=== PATIENT | female | born 1985 | race Two or more races ===

== ENCOUNTER → 2023-05-12 11:26 | Outpatient (BNVA) | payer BC, SELFPAY | PROVIDERS: PCP Internal Medicine; Visit Provider Physician Assistant ==

== ENCOUNTER 2023-05-28 08:12 | Outpatient (AMB) | payer BC, SELFPAY ==
--- OUTSIDE RECORDS SUMMARY | 2023-05-28 08:13 | XMS_ITS | Continuity of Care Document ---
Author Name Unknown Organization [facility] Address Unknown Care Team Providers Care Chef Instructor Name Role Phone Not on Staff, PCP Primary Care Physician Unavail able [place] [facility] [place](s[place] 10/15/21 - 11/14/21 [facility] Rep[facility]ductive Medicine Allergies, Adverse Reactions, Alerts No Known Allergies Medications Labetalol 0 Refills, Maintenance, 07/31/21 15:09:00 EST, Partial fill upon patient request if the prescription is for a schedule II opioid drug. Start Date: 07/31/21 Status: Ordered spironolactone 25 mg oral tablet 25 mg, 1, tablet, By Mouth, Daily, # 30 tablet, Refills 0, Maintenance, 08/16/21 10:24:00 EST, Partial fill upon patient request if the prescription is for a schedule II opioid drug. Start Date: 08/16/21 Status: Ordered Valium 5 mg oral tablet 5 mg, 1, tablet, By Mouth, Once, take 1 tablet 1/2 to 1 hr before Sono may repeat dose if needed., # 2 tablet, Refills 0, Tot. Refills 0, Soft Stop, 10/16/21 14:47:00 EDT, Route to Pharmacy Electronically, [facility] #[id number], Partial fill... Start Date: 10/16/21 Status: Ordered Problem List Condition Effective Dates Status Health Status Inform ant Hypertension(Confirmed) Active Social History Social History Type Response Smoking Status Never (less than 100 in lifetime) entered on: 07/31/21 Sex
--- OUTSIDE RECORDS SUMMARY | 2023-05-28 08:13 | XMS_ITS | Continuity of Care Document ---
Author Name Unknown Organization [facility] ter Address [address] [place] [address]- Care Team Providers Care Regulatory Leader Name Role Phone Not on Staff, PCP Primary Care Physician Unavail able Encounter [facility] [place] Date(s): 08/24/21 - 09/29/[address] [address] Attending Physician: Criss Sharma MD Allergies, Adverse Reactions, Alerts No Known Allergies [...] opioid drug. Start Date: 08/16/21 Status: Ordered Problem List Condition Effective Dates Status Health Status Inform ant Hypertension(Confirmed) Active Social History Social History Type Response Smoking Status Never (less than 100 in lifetime) entered on: 07/31/21 Sex
--- OUTSIDE RECORDS SUMMARY | 2023-05-28 08:14 | XMS_ITS | Continuity of Care Document ---
Author Name Unknown Organization [facility] e Medicine Address Unknown Care Team Providers Care Cow Rider Name Role Phone Not on Staff, PCP Primary Care Physician Unavail able Encounter [facility] [place] Date(s): 08/30/21 - 09/06/21 [facility] Reproductive Medicine Attending Physician: Criss Sharma MD Allergies, Adverse [...]
--- OUTSIDE RECORDS SUMMARY | 2023-05-28 08:14 | XMS_ITS | Continuity of Care Document ---
Author Name Unknown Organization [facility] Address [address] [place] [address]- Care Team Providers Care It Recruiter Name Role Phone Not on Staff, PCP Primary Care Physician Unavail able [place] [facility] [place](s): 10/17/21 - 11/16/21 [facility] [address] [place] [id number] Attending Physician: Sissy Irizarry Admitting Physician: Sissy Irizarry Referring Physician: trSissy Allergies, Adverse Reactions, Alerts No Known Allergies [...] 10/16/21 14:47:00 EDT, Route to Pharmacy Electronically, [facility] #[id number], Partial fill... Start Date: 10/16/21 Status: Ordered Problem List Condition Effective Dates Status Health Status Inform ant Hypertension(Confirmed) Active Social History Social History Type Response Smoking Status Never (less than 100 in lifetime) entered on: 07/31/21 Sex
--- OUTSIDE RECORDS SUMMARY | 2023-05-28 08:14 | XMS_ITS | Continuity of Care Document ---
Author Name Unknown Organization [facility] calh[facility] Assist[facility] Address [address] [place] [address], [address] [place] [address]- Care Team Providers Care Manager Income Tax Name Role Phone Not on Staff, PCP Primary Care Physician Unavail able Encounter [facility] [id number] Date(s): 10/04/21 - 02/01/22 [facility]tega[facility]ist[facility] [address] [facility] [address], [address] [place] [address]- Attending Physician: Not on Staff, Attending MD Referring Physician: Not on Staff, Referring MD Allergies, Adverse Reactions, Alerts No Known Allergies Medications Apri 0.15 mg-0.03 mg oral tablet 1 tablet, By Mouth, Daily, # 28 tablet, 2 Refills, Maintenance, 01/22/22 11:48:00 EDT, Tablet, [facility] #[id number], Partial fill upon patient request if the prescription is for a schedule II opioid drug., 1 tablet By Mouth Daily Start Date: 01/22/22 Status: Ordered Labetalol 0 Refills, Maintenance, 07/31/21 15:09:00 EST, [...] 10/16/21 14:47:00 EDT, Route to Pharmacy Electronically, [facility] #[id number], Partial fill... Start Date: 10/16/21 Status: Ordered Problem List Condition Effective Dates Status Health Status Inform ant Hypertension(Confirmed) Active Social History Social History Type Response Smoking Status Never (less than 100 in lifetime) entered on: 07/31/21 Sex
--- OUTSIDE RECORDS SUMMARY | 2023-05-28 08:14 | XMS_ITS | Continuity of Care Document ---
Author Name Unknown Organization [facility] e Medicine Address Unknown Care Team Providers Care Middle School Counselor Name Role Phone Not on Staff, PCP Primary Care Physician Unavail able [place] [facility] [place] 12/05/21 - 01/04/22 [facility] Reproductive Medicine Allergies, Adverse Reactions, Alerts No Known Allergies Medications Apri 0.15 mg-0.03 mg oral tablet 1 tablet, By Mouth, Daily, # 28 tablet, 0 Refills, Maintenance, 12/20/21 16:33:00 EDT, Tablet, [facility] #[id number], Partial fill upon patient request if the prescription is for a schedule II opioid drug., 1 tablet By Mouth Daily Start Date: 12/20/21 Status: Ordered Labetalol 0 Refills, Maintenance, 07/31/21 [...] 10/16/21 14:47:00 EDT, Route to Pharmacy Electronically, [facility] #[id number], Partial fill... Start Date: 10/16/21 Status: Ordered Problem List Condition Effective Dates Status Health Status Inform ant Hypertension(Confirmed) Active Social History Social History Type Response Smoking Status Never (less than 100 in lifetime) entered on: 07/31/21 Sex
--- OUTSIDE RECORDS SUMMARY | 2023-05-28 08:14 | XMS_ITS | Continuity of Care Document ---
Author Name Unknown Organization [facility] e Medicine Address Unknown Care Team Providers Care Air Control/Anti Air Warfare Officer Name Role Phone Not on Staff, PCP Primary Care Physician Unavail able En[place] [facility] [place] Date(s): 10/16/21 - 12/19/21 [facility] Reproductive Medicine Attending Physician: Criselda Mohr MD Referring Physician: Jeanne GOLDSMITH, Milagros Barrientos Allergies, Adverse Reactions, Alerts No Known Allergies [...] 10/16/21 14:47:00 EDT, Route to Pharmacy Electronically, [facility] #[id number], Partial fill... Start Date: 10/16/21 Status: Ordered Problem List Condition Effective Dates Status Health Status Inform ant Hypertension(Confirmed) Active Social History Social History Type Response Smoking Status Never (less than 100 in lifetime) entered on: 07/31/21 Sex
--- OUTSIDE RECORDS SUMMARY | 2023-05-28 08:14 | XMS_ITS | Continuity of Care Document ---
Author Name Unknown Organization [facility] e Medicine Address Unknown Care Team Providers Care Transportation Modeler Name Role Phone Not on Staff, PCP Primary Care Physician Unavail able Encounter [facility] [place] Date(s): 08/30/21 - 09/29/21 [facility] Reproductive Medicine Allergies, Adverse Reactions, Alerts [...]
--- OUTSIDE RECORDS SUMMARY | 2023-05-28 08:14 | XMS_ITS | Continuity of Care Document ---
Author Name Unknown Organization [facility]ierra calhounEnWavemay[facility] Address [address], [address] [place] [address]- Care Team Providers Care Service Transformer Repair Supervisor Name Role Phone Not on Staff, PCP Primary Care Physician Unavail able [place] [facility] [place] 02/06/22 - 03/08/22 [facility]fartun [facility] [address], [address] [place], [place] [address] Attending Physician: Sissy Irizarry Admitting Physician: Sissy Irizarry Referring Physician: AdmtrSissy Allergies, Adverse Reactions, Alerts No Known Allergies Medications Labetalol 0 Refills, Maintenance, 07/31/21 15:09:00 EST, Partial fill upon patient request if the prescription is for a schedule II opioid drug. Start Date: 07/31/21 Status: Ordered naproxen 250 mg oral tablet 500 mg, 2, tablet, By Mouth, 2 times a day, # 30 tablet, Refills 0, Tot. Refills 0, Maintenance, 02/06/22 13:43:00 EDT, Route to Pharmacy Electronically, [facility] #[id number], Partial fill upon patient request if the prescription is for a sched... Start Date: 02/06/22 Status: Ordered Provera 10 mg oral tablet 10 mg, 1, tablet, By Mouth, Daily, # 30 tablet, Refills 0, Tot. Refills 0, Maintenance, 02/06/22 13:43:00 EDT, Route to Pharmacy Electronically, [facility] #[id number], Partial fill upon patientrequest if the prescription is for a schedule II op... Start Date: 02/06/22 Status: Ordered Problem List Condition Effective Dates Status Health Status Inform ant Hypertension(Confirmed) Active Social History Social History Type Response Smoking Status Never (less than 100 in lifetime) entered on: 07/31/21 Sex Care Team Personnel Name: Not on Staff, PCP
--- OUTSIDE RECORDS SUMMARY | 2023-05-28 08:14 | XMS_ITS | Continuity of Care Document ---
Author Name Unknown Organization [facility] e Medicine Address Unknown Care Team Providers Care Television Anchor Name Role Phone Not on Staff, PCP Primary Care Physician Unavail able [place] [facility] [place]12[place]21 - 10/26/21 [facility] Reproductive Medicine Attending Physician: Milagros Angel MD Allergies, Adverse Reactions, Alerts No Known [...] 10/16/21 14:47:00 EDT, Route to Pharmacy Electronically, [facility] #[id number], Partial fill... Start Date: 10/16/21 Status: Ordered Problem List Condition Effective Dates Status Health Status Inform ant Hypertension(Confirmed) Active Social History Social History Type Response Smoking Status Never (less than 100 in lifetime) entered on: 07/31/21 Sex
--- OUTSIDE RECORDS SUMMARY | 2023-05-28 08:14 | XMS_ITS | Continuity of Care Document ---
Author Name Unknown Organization [facility] [employer] [facility] Address [address] [place] [address], [address] [place] [address]- Care Team Providers Care Diagrammer Name Role Phone Not on Staff, PCP Primary Care Physician Unavail able [place] [facility] [place] - 02/01/22 [facility] [employer] [employer] [facility] [address] [facility], [address] [place] [address]- Attending Physician: Sissy Irizarry Admitting Physician: Sissy Irizarry Referring Physician: AdmtrSissy Allergies, Adverse Reactions, Alerts No Known Allergies Medications Apri 0.15 mg-0.03 mg oral tablet 1 tablet, By Mouth, Daily, # 28 tablet, 2 Refills, Maintenance, 01/22/22 11:48:00 EDT, Tablet, [facility] #[id number], Partial fill upon patient request if the [...] Refills 0, Tot. Refills 0, Soft Stop, 04/12/22 14:47:00 EDT, Route to Pharmacy Electronically, [facility] #[id number], Partial fill... Start Date: 10/16/21 Status: Ordered Problem List Condition Effective Dates Status Health Status Inform ant Hypertension(Confirmed) Active Social History Social History Type Response Smoking Status Never (less than 100 in lifetime) entered on: 07/31/21 Sex
--- OUTSIDE RECORDS SUMMARY | 2023-05-28 08:14 | XMS_ITS | Continuity of Care Document ---
Author Name Unknown Organization [facility]ierra calhounFormaFinam[employer]ur [facility] Address [address] [place] [address], [address] [place] [address]- Care Team Providers Care Filler Block Inserter Remover Name Role Phone Not on Staff, PCP Primary Care Physician Unavail able En[place] [facility] [place] Date(s): 10/28/22 - 11/04/22 [facility] OrtegaFormaFin[facility] [address] [facility], 4th [place] [address]- Attending Physician: Mat Rios MD Referring Physician: Not on Staff, Referring MD Allergies, Adverse Reactions, Alerts No Known Allergies Medications Labetalol 0 Refills, Maintenance, 07/31/21 15:09:00 EST, Partial fill upon patient request if the prescription is for a schedule II opioid drug. Start Date: 07/31/21 Status: Ordered metFORMIN 500 mg oral tablet 1 tablet = 500 mg, By Mouth, 2 times a day, # 60 tablet, 1 Refills, Maintenance, 10/28/22 10:20:00 EDT, Tablet, [facility] #[id number], Partial fill upon patient request if the prescription is for a schedule II opioid drug., 174, cm, 10/28/22 10:... Start Date: 10/28/22 Status: Ordered naproxen 250 mg oral tablet 500 mg, 2, tablet, By Mouth, 2 times a day, # 30 tablet, Refills 0, Tot. Refills 0, Maintenance, 02/06/22 13:43:00 EDT, Route to Pharmacy Electronically, [facility] #[id number], Partial fill upon patient request if the prescription is for a sched... Start Date: 02/06/22 Status: Ordered Problem List Condition Confirmation Course Effective Dates Status Health St [facility] Informant Hypertension Confirmed Active Severe obesity (BMI 35.0-39.9) with comorbidity Confirmed Active Vital Signs Most recent to oldest [Reference Range]: 1 2 Height 174 cm (10/28/22 10:22 AM) 174 cm (10/28/22 10:05 AM) Weight 109.9 kg (10/28/22 10:05 AM) Pulse Rate [55-90 bpm] 71 bpm (10/28/22 10:05 AM) Body Mass Index [18.5-24.99 kg/m2] 36.3 kg/m2 *>HHI* (10/28/22 10:05 AM) Blood Pressure [90-138/55-84 mm Hg] 140/ 73mm Hg *H* (10/28/22 10:22 AM) 143/74mm Hg *H* (10/28/22 10:05 AM) Blood pressure sites Arm, right (10/28/22 10:22 AM) Arm, right (10/28/22 10:05 AM) Dry Weight 109.9 kg (10/28/22 10:05 AM) Weight Obtained Via Standing scale (10/28/22 10:05 AM) Dry Weight Obtained Via Standing scale (10/28/22 10:05 AM) Social History Social History Type Response Smoking Status Never (less than 100 in lifetime) entered on: 07/31/21 Sex Patient Care team information Care Team Personnel Name: Not on Staff, PCP Position: S Physician (General Medicine) Member Role: PCP Care Team Related Persons Name: ANNIE SERVIN Address: home [address] [place] [address] Name: JAMES RENEE Address: home [address] [place] [address]
--- OUTSIDE RECORDS SUMMARY | 2023-05-28 08:14 | XMS_ITS | Continuity of Care Document ---
Author Name Unknown Organization [facility] e Medicine Address Unknown Care Team Providers Care Switchgear Repairer Name Role Phone Not on Staff, PCP Primary Care Physician Unavail able [place] [facility] [place] 11[place]05/21 - 12/05/21 [facility] Reproductive Medicine Allergies, Adverse Reactions, Alerts No [...] 10/16/21 14:47:00 EDT, Route to Pharmacy Electronically, [facility] #[id number], Partial fill... Start Date: 10/16/21 Status: Ordered Problem List Condition Effective Dates Status Health Status Inform ant Hypertension(Confirmed) Active Social History Social History Type Response Smoking Status Never (less than 100 in lifetime) entered on: 07/31/21 Sex
--- OUTSIDE RECORDS SUMMARY | 2023-05-28 08:14 | XMS_ITS | Continuity of Care Document ---
Author Name Unknown Organization [facility] e Medicine Address Unknown Care Team Providers Care Peach Grower Name Role Phone Not on Staff, PCP Primary Care Physician Unavail able [place] [facility] [place]17[place] - 10/17/21 [facility] Reproductive Medicine Allergies, Adverse Reactions, Alerts No [...] 10/16/21 14:47:00 EDT, Route to Pharmacy Electronically, [facility] #[id number], Partial fill... Start Date: 10/16/21 Status: Ordered Problem List Condition Effective Dates Status Health Status Inform ant Hypertension(Confirmed) Active Social History Social History Type Response Smoking Status Never (less than 100 in lifetime) entered on: 07/31/21 Sex
--- OUTSIDE RECORDS SUMMARY | 2023-05-28 08:14 | XMS_ITS | Continuity of Care Document ---
Author Name Unknown Organization [facility] Tierra calhounIntellitacticss [facility] Address [address], [address] [place] [address]- Care Team Providers Care Manager Document Name Role Phone Not on Staff, PCP Primary Care Physician Unavail able [place] [facility] [place] 01/28/23 - 02/27/23 [facility] OrtegaIntellitacticss [facility] [address], [address]th [place] [address]- Attending Physician: Sissy Irizarry Admitting Physician: Sissy Irizarry Referring Physician: Sissy Irizarry Allergies, Adverse Reactions, Alerts No Known Allergies Medications Centrum Adult MultiGummies Daily, 0 Refills, Maintenance, 01/14/23 11:13:00 EDT, Partial fill upon patient request if the prescription is for a schedule II opioid drug. Start Date: 01/14/23 Status: Ordered Labetalol 0 Refills, Maintenance, 07/31/21 15:09:00 EST, Partial fill upon patient request if the prescription is for a schedule II opioid drug. Start Date: 07/31/21 Status: Ordered metFORMIN 1000 mg oral tablet 1 tablet = 1,000 mg, By Mouth, 2 times a day, # 180 tablet, 0 Refills, Maintenance, 01/14/23 13:34:00 EDT, Tablet, [facility] #[id number], Partial fill upon patient request if the prescription is for a schedule II opioid drug., 174, cm, 01/14/23... Start Date: 01/14/23 Status: Ordered Problem List Condition Confirmation Course Effective Dates Status Health St [facility] Informant Abnormal uterine bleeding Confirmed Active Family history of uterine cancer Confirmed Active Hypertension Confirmed Active Severe obesity (BMI 35.0-39.9) with comorbidity Confirmed Active Social History Social History Type Response Smoking Status Never (less than 100 in lifetime) entered on: 07/31/21 Sex Patient Care team information Care Team Personnel Name: Not on Staff, PCP Position: S Physician (General Medicine) Member Role: PCP Care Team Related Persons Name: MALATHI MARQUITADAREN Address: home [address] [place] [address] [place] Name: JAMES RENEE Address: home [address] [place] [address]
--- OUTSIDE RECORDS SUMMARY | 2023-05-28 08:14 | XMS_ITS | Continuity of Care Document ---
Author Name Unknown Organization [facility] Tierra Diane nExa[employer] System[employer] [facility] Address [address], [address] [place] [address]- Care Team Providers Care Transformation Specialist Name Role Phone Not on Staff, PCP Primary Care Physician Unavail able Encounter [facility] Date(s): 08/10/21 - 09/09/21 [facility] Tierrafartun OrtegaExaGrid Systemss [facility] [address], [address]th [place] [address]- Allergies, Adverse Reactions, Alerts No Known Allergies [...]
--- OUTSIDE RECORDS SUMMARY | 2023-05-28 08:14 | XMS_ITS | Continuity of Care Document ---
Author Name Unknown Organization [facility] e Medicine Address Unknown Care Team Providers Care Battery Charger Name Role Phone Not on Staff, PCP Primary Care Physician Unavail able Encounter [facility] [place] Date(s): 08/30/21 - 09/29/21 [facility] Reproductive Medicine Attending Physician: Sissy Irizarry Admitting Physician: Sissy [...]
--- OUTSIDE RECORDS SUMMARY | 2023-05-28 08:14 | XMS_ITS | Continuity of Care Document ---
Author Name Unknown Organization [facility] Tierra grahams [facility] Address [address], [address] [place] [address]- Care Team Providers Care Wrapping Checker Name Role Phone Not on Staff, PCP Primary Care Physician Unavail able [place] [facility] [place] - 02/27/23 [facility] Tierra Fosss [facility] [address], [address] [place] [address]- Attending Physician: Not on Staff, Attending MD Referring Physician: Olga Lidia Rodríguez Allergies, Adverse Reactions, Alerts No Known Allergies [...] 0 Refills, Maintenance, 01/14/23 13:34:00 EDT, Tablet, [facility] #[id number], Partial fill upon patient request if the [...] Related Persons Name: ANNIE SERVIN Address: home [address] [place] [address] [place] Name: JAMES RENEE Address: home [address] [place] [address]
--- OUTSIDE RECORDS SUMMARY | 2023-05-28 08:14 | XMS_ITS | Continuity of Care Document ---
Author Name Unknown Organization [facility]ierra calhounPushfors [facility] Address [address] [place] [address], [address] [place] [address]- Care Team Providers Care Vehicle Washer Name Role Phone Not on Staff, PCP Primary Care Physician Unavail able [place] [facility] [place]19[place] [facility] [address] [facility] [address] [facility], [address] [place] [address]- Allergies, Adverse Reactions, Alerts No Known Allergies Medications Apri 0.15 mg-0.03 mg oral tablet 1 tablet, By Mouth, Daily, # 28 tablet, 0 Refills, Maintenance, 12/20/21 16:33:00 EDT, Tablet, [facility] #[id number], Partial fill upon patient request if the [...] 10/16/21 14:47:00 EDT, Route to Pharmacy Electronically, [facility] #[id number], Partial fill... Start Date: 10/16/21 Status: Ordered Problem List Condition Effective Dates Status Health Status Inform ant Hypertension(Confirmed) Active Social History Social History Type Response Smoking Status Never (less than 100 in lifetime) entered on: 07/31/21 Sex
--- OUTSIDE RECORDS SUMMARY | 2023-05-28 08:14 | XMS_ITS | Continuity of Care Document ---
Author Name Unknown Organization [facility] Address [address], [address] [place] [address]- Care Team Providers Care Intern Architect Name Role Phone Not on Staff, PCP Primary Care Physician Unavail able [facility] [place] Date(s): 11/20/22 - [facility]20/[facility] [address] [facility], [address] [place] [address]- Allergies, Adverse Reactions, Alerts No Known Allergies Medications Labetalol 0 Refills, Maintenance, 07/31/21 15:09:00 EST, Partial fill upon patient request if the prescription is for a schedule II opioid drug. Start Date: 07/31/21 Status: Ordered metFORMIN 500 mg oral tablet 1 tablet = 500 mg, By Mouth, 2 times a day, # 60 tablet, 1 Refills, Maintenance, 10/28/22 10:20:00 EDT, Tablet, [facility] #[id number], Partial fill upon patient request if the prescription is for a schedule II opioid drug., 174, cm, 10/28/22 10:... Start Date: 10/28/22 Status: Ordered naproxen 250 mg oral tablet 500 mg, 2, tablet, By Mouth, 2 times a day, # 30 tablet, Refills 0, Tot. Refills 0, Maintenance, 02/06/22 13:43:00 EDT, Route to Pharmacy Electronically, [facility] #[id number], Partial fill upon patient request if the [...] Related Persons Name: ANNIE SERVIN Address: home [address] [place] [address] [place] Name: JAMES RENEE Address: home [address] [place] [address]
--- OUTSIDE RECORDS SUMMARY | 2023-05-28 08:15 | XMS_ITS | Continuity of Care Document ---
Author Name Unknown Organization [facility] Address [address] [place] [address]- Care Team Providers Care Surveillance Systems Analyst Name Role Phone Not on Staff, PCP Primary Care Physician Unavail able [place] [facility] [place] Date(s): 01/22/22 - 02/21/22 [facility] [address] [place], [place] [address] Allergies, Adverse Reactions, Alerts No Known Allergies [...] 02/06/22 13:43:00 EDT, Route to Pharmacy Electronically, [id number], Partial fill upon patient request if the prescription is for a sched... Start Date: 02/06/22 Status: Ordered Provera 10 mg oral tablet 10 mg, 1, tablet, By Mouth, Daily, # 30 tablet, Refills 0, Tot. Refills 0, Maintenance, 02/06/22 13:43:00 EDT, Route to Pharmacy Electronically, [facility] #[id number], Partial fill upon patientrequest if the prescription is for a schedule II op... Start Date: 02/06/22 Status: Ordered Problem List Condition Effective Dates Status Health Status Inform ant Hypertension(Confirmed) Active Social History Social History Type Response Smoking Status Never (less than 100 in lifetime) entered on: 07/31/21 Sex
--- OUTSIDE RECORDS SUMMARY | 2023-05-28 08:15 | XMS_ITS | Continuity of Care Document ---
Author Name Unknown Organization [facility] Address Unknown Care Team Providers Care Price Checker Name Role Phone Not on Staff, PCP Primary Care Physician Unavail able [place] [facility] [place](s): 08/16/21 - 08/23/21 [facility] Attending Physician: Criss Sharma MD Referring Physician: Not on Staff, Referring MD Allergies, Adverse Reactions, Alerts No Known Allergies Medications doxycycline hyclate 100 mg oral capsule 1 capsule = 100 mg, By Mouth, 2 times a day, for 5 days, Start 2 days before HSG and continue for 5days total. You may take with food (breakfast and dinner) to minimize abdominal discomfort., # 10 capsule, 0 Refills, Acute 08/26/21 14:42:00 EST, 02... Start Date: 08/21/21 Stop Date: 08/26/21 Status: Ordered Labetalol 0 Refills, Maintenance, 07/31/21 [...]
--- OUTSIDE RECORDS SUMMARY | 2023-05-28 08:15 | XMS_ITS | Continuity of Care Document ---
Author Name Unknown Organization [facility] Address Unknown Care Team Providers Care Senior Care Manager Name Role Phone Not on Staff, PCP Primary Care Physician Unavail able [place] [facility] [place](s): 08/20/21 - 09/19/21 [facility] Allergies, Adverse Reactions, Alerts [...]
--- OUTSIDE RECORDS SUMMARY | 2023-05-28 08:15 | XMS_ITS | Continuity of Care Document ---
Author Name Unknown Organization [facility] Address [address] [place] [address], [address] [place] [address]- Care Team Providers Care Pharmacist Manager Name Role Phone Not on Staff, PCP Primary Care Physician Unavail able Encounter [facility] [place] Date(s): 07/31/21 - 08/07/21 [facility] [employer] [address], [address] [place] [address]- Attending Physician: Luis Fernando GOLDSMITH [OB], Ita Morales Referring Physician: Olga Lidia Rodríguez Allergies, Adverse Reactions, Alerts No Known Allergies Medications Labetalol 0 Refills, Maintenance, 07/31/21 15:09:00 EST, Partial fill upon patient request if the prescription is for a schedule II opioid drug. Start Date: 07/31/21 Status: Ordered Problem List Condition Effective Dates Status Health Status Inform ant Hypertension(Confirmed) Active Vital Signs Most recent to oldest [Reference Range]: 1 Weight 110 kg (07/31/21 3:08 PM) Blood Pressure [90-138/55-84 mm Hg] 128/ 72mm Hg (07/31/21 3:08 PM) Blood pressure sites Arm, right (07/31/21 3:08 PM) Weight Obtained Via Standing scale (07/31/21 3:08 PM) Social History Social History Type Response Smoking Status Never (less than 100 in lifetime) entered on: 07/31/21 Sex
--- OUTSIDE RECORDS SUMMARY | 2023-05-28 08:15 | XMS_ITS | Continuity of Care Document ---
Author Name Unknown Organization [facility] Address [address], [address] [place] [address]- Care Team Providers Care Director Safety Council Name Role Phone Not on Staff, PCP Primary Care Physician Unavail able Encounter [facility] Date(s): 09/26/22 - 10/26/22 [facility] [address], [address] [place], [place] [address] Allergies, Adverse Reactions, Alerts No Known [...] 02/06/22 13:43:00 EDT, Route to Pharmacy Electronically, [id number], Partial fill upon patient request if the prescription is for a sched... Start Date: 02/06/22 Status: Ordered Provera 10 mg oral tablet 10 mg, 1, tablet, By Mouth, Daily, # 10 tablet, Refills 0, Tot. Refills 0, Maintenance, 09/27/22 9:40:00 EDT, Route to Pharmacy Electronically, [facility] #[id number], Partial fill upon patient request if the prescription is for a schedule II opi... Start Date: 09/27/22 Stop Date: 10/07/22 Status: Ordered Problem List Condition Confirmation Course Effective Dates Status Health St [facility] Informant Hypertension Confirmed Active Obese class I Confirmed Active Social History Social History Type Response Smoking Status Never (less than 100 in lifetime) entered on: 07/31/21 Sex Patient Care team information Care Team Personnel Name: Not on Staff, PCP Position: [facility] Physician (General Medicine) Member Role: PCP Care Team Related Persons Name: NNEKAVIVANNIE GALARZA Address: home [address] [place] [address] [place] Name: JAMES RENEE Address: home [address] [place] [address]
--- OUTSIDE RECORDS SUMMARY | 2023-05-28 08:15 | XMS_ITS | Continuity of Care Document ---
Author Name Unknown Organization [facility] Address [address] [place] [address]- Care Team Providers Care Chainstitch Felled Seam Operator Name Role Phone Not on Staff, PCP Primary Care Physician Unavail able [id number] Date[facility]s): 02/06/22 - 02/13/22 [facility] [address], [address] [place] [address]- Attending Physician: Mat Rios MD Referring Physician: Olga Lidia Rodríguez Allergies, [...] 02/06/22 13:43:00 EDT, Route to Pharmacy Electronically, [facility][id number], Partial fill upon patient request if the prescription is for a sched... Start Date: 02/06/22 Status: Ordered Provera 10 mg oral tablet 10 mg, 1, tablet, By Mouth, Daily, # 30 tablet, Refills 0, Tot. Refills 0, Maintenance, 02/06/22 13:43:00 EDT, Route to Pharmacy Electronically, [facility] #[id number], Partial fill upon patientrequest if the prescription is for a schedule II op... Start Date: 02/06/22 Status: Ordered Problem List Condition Effective Dates Status Health Status Inform ant Hypertension(Confirmed) Active Vital Signs Most recent to oldest [Reference Range]: 1 Weight 112.2 kg (02/06/22 1:28 PM) Pulse Rate [55-90 bpm] 81 bpm (02/06/22 1:28 PM) Blood Pressure [90-138/55-84 mm Hg] 124/ 92mm Hg (02/06/22 1:28 PM) Blood pressure sites Arm, left (02/06/22 1:28 PM) Dry Weight 112.2 kg (02/06/22 1:28 PM) Weight Obtained Via Standing scale (02/06/22 1:28 PM) Social History Social History Type Response Smoking Status Never (less than 100 in lifetime) entered on: 07/31/21 Sex
--- NOTE | 2023-05-28 10:15 | A.OFFVIS_ITS ---
Intake VS Expanded 05/28/23 10:32 Height 5 ft 6 in Weight 39 lb 9 oz BMI 6.4 Body Fat % 47.6 Body Fat Mass 117.8 Fat Free Mass 129.6 Visceral Fat Rating 12 Body Water % 37.5 Body Water Mass 92.6 Basal Metabolic Rate/Score 1,852 Intake Visit Reasons: [employer] SWL BMI 39.9 Allergies No Known Allergies Allergy (Verified 05/28/23 10:16) Medication List - Last Reconciled 05/28/23 by Samson Sullivan MD albuterol sulfate 90 mcg/actuation 2 puffs inhalation Q6H PRN buspirone 5 mg PO BID ferrous sulfate (FeroSul) 325 mg PO DAILY labetalol 100 mg PO BID multivitamin 1 tab PO DAILY HPI [employer]ION[employer] SWL BMI 39.9 HPI Details Start time: 10.08am, End time: 10.58am ?I spent 45 minutes speaking with the patient on the phone plus an additional 5 minutes reviewing and updating records for a total of 50 minutes HPI Comments History of Present Illness Details Previous weight loss efforts: Weight Watchers, intermittent fasting Wakes up: 6am, Sleeps: 10pm Breakfast: 7am (eggs, cereal, sandwich) Lunch: 12.30pm-1pm (left over: chicken, potatoes, soup, rice) Dinner: 6pm (chicken, potatoes, flatbread Snacks: 4pm (crackers and peanut butter, dried fruits) Exercise: none Fluids: Coffee: 1 cup/day (creamer), tea: none, soda: regular loki renaldo, juice: none, ETOH: wine 1/wk PFSH Medical History (Updated 05/28/23 @ 10:19 by Samson Sullivan MD) Asthma DJD (degenerative joint disease) Surgical History (Updated 05/28/23 @ 08:47 by Joan Aguilar CMA) No history of previous surgery Family History (Updated 05/28/23 @ 08:49 by Joan Aguilar CMA) Mother Diabetes Hypertension Arthritis Father No problems noted. (Updated 05/28/23 @ 08:48 by Joan Aguilar CMA) Alcohol intake: current Alcohol intake frequency: holidays/special occasions only Alcohol type: wine Patient Tobacco Use Status: Never used Tobacco Assessment & Plan Assessment & Plan (1) Obesity: Code(s): E66.9 - Obesity, unspecified Plan: 1.? Plan for lap sleeve gastrectomy. If diaphragmatic or ventral hernias are present at time of surgery, these will be repaired laparoscopically as well. Risks and complications were discussed in detail including possible conversion to an open procedure, anastomotic leak, bleeding requiring transfusion, small bowel obstruction, , DVT and pulmonary embolism, cardiac, or pulmonary complications, as care home complications such as anastomotic ulcer, insufficient weight loss and vitamin deficiencies. I emphasized the importance of close follow-up, adherence to instructions and good communication. 2. Nutritional counseling. Start with 2 CELEBRATE REBUILD protein (buy at [facility] [employer] [facility]) shakes (ONE scoop EACH in 8oz low fat unsweetened almond milk each) at 7am-9am and 10am-12pm, 2 protein bars (CELEBRATE protein bars, buy at [facility] [employer] [facility]) at 1pm-3pm and 4pm-6pm, dinner at 7pm (10 forks of protein and 10 forks of salad/vegetables). If hungry after dinner you can have another HALF protein bar at 9pm-10pm. So you do 2 protein shakes, 2 or 2.5 protein bars and one meal per day. Meal to include lean meat (beef, fish, pork, turkey, chicken), or tunisian yogurt, or egg whites, or beans with a salad with olive oil and fruits (berries, pears, apples, kiwi). Avoid salt, breads, potatoes, rice, pasta, desserts. 3. Each shake would be drunk slowly, like coffee in a period of 2 hours. You may add your coffee into your shakes if flavors match. 4. Cut each bar in 4 pieces and eat each piece in 30min ?to make each bar last 2 hours. 5. I emphasized the importance of measuring accurately the food portion and measure it when serving the food in plate 6. The meal portions include 10 full-size forks of meat and 10 full-size forks of salad. You always eat the meat portion but you can replace up to 5 forks for salad/vegetables with rice, potatoes or pasta, or a fruit ?if you like. The less you do it the better weight loss will be. 7. One full-size fork is what it can be scooped on the fork without falling aside and not what can be bit with the fork. Use regular forks like those you find in a typical restaurant. 8.? Please send me weight measurements as soon as possible and then once a week. Always include your diet and exercise plan. 9. Start walking outside daily, tracking calories with a goal of 300 calories per day, daily. Goal is to burn 2000 calories per week on exercise, which means either 300 calories daily, or 400 calories 5 days per week, or 500 calories 4 days per week, or 650 calories 3 days per week. 10. I strongly recommend that you purchased a stationary bike, elliptical or treadmill at home that can track calories. Let me know if you do so I can give you an exercise plan. 11.?It is important of avoiding and for at least 18 months postoperatively and has been discussed at the infosession. 12. Goal is to lose at least 1.5-2lbs per week 13. Goal to lose 10% of your weight before surgery, which is about 25lbs. Ultimate weight goal: 222lbs before surgery 14. Please follow the diet plan exactly without any change. If you don't like something about the plan or you feel hungry you need to communicate with me so I can help you revise the plan. You should not change the plan yourself. (2) BMI 39.0-39.9,adult: Code(s): Z68.39 - Body mass index [BMI] 39.0-39.9, adult (3) Hypertension: Code(s): I10 - Essential (primary) hypertension (4) DJD (degenerative joint disease): Code(s): M19.90 - Unspecified osteoarthritis, unspecified site (5) Anxiety: Code(s): F41.9 - Anxiety disorder, unspecified (6) Asthma: Code(s): J45.909 - Unspecified asthma, uncomplicated Orders: Orders Lipid Panel Today E66.9 - Obesity, unspecified, F41.9 - Anxiety disorder, unspe cified, I10 - Essential (primary) hypertension, J45.909 - Unspecified asthma, uncomplicated, M19.90 - Unspecified osteoarthritis, unspecified site, Z68.39 - Body mass index [BMI] 39.0-39.9, adult IRON PROFILE Today E66.9 - Obesity, unspecified, F41.9 - Anxiety disorder, unspecified, I10 - Essential (primary) hypertension, J45.909 - Unspecified asthma, uncomplicated, M19.90 - Unspecified osteoarthritis, unspecified site, Z68.39 - Body mass index [BMI] 39.0-39.9, adult Complete Blood Count Auto Diff Today E66.9 - Obesity, unspecified, F41.9 - Anxiety disorder, unspecified, I10 - Essential (primary) hypertension, J45.909 - Unspecified asthma, uncomplicated, M19.90 - Unspecified osteoarthritis, unspecified site, Z68.39 - Body mass index [BMI] 39.0-39.9, adult Comprehensive Met. Panel Today E66.9 - Obesity, unspecified, F41.9 - Anxiety disorder, unspecified, I10 - Essential (primary) hypertension, J45.909 - Uns pecified asthma, uncomplicated, M19.90 - Unspecified osteoarthritis, unspecified site, Z68.39 - Body mass index [BMI] 39.0-39.9, adult Vitamin B1 Today E66.9 - Obesity, unspecified, F41.9 - Anxiety disorder, unspecified, I10 - Essential (primary) hypertension, J45.909 - Unspecified asthma, uncomplicated, M19.90 - Unspecified osteoarthritis, unspecified site, Z68.39 - Body mass index [BMI] 39.0-39.9, adult Vitamin A Today E66.9 - Obesity, unspecified, F41.9 - Anxiety disorder, unspecified, I10 - Essential (primary) hypertension, J45.909 - Unspecified asthma, uncomplicated, M19.90 - Unspecified osteoarthritis, unspecified site, Z68.39 - Body mass index [BMI] 39.0-39.9, adult C Reactive Protein Today E66.9 - Obesity, unspecified, F41.9 - Anxiety disorder, unspecified, I10 - Essential (primary) hypertension, J45.909 - Unspecified asthma, uncomplicated, M19.90 - Unspecified osteoarthritis, unspecified site, Z68.39 - Body mass index [BMI] 39.0-39.9, adult Ferritin Today E66.9 - Obesity, unspecified, F41.9 - Anxiety disorder, unspecified, I10 - Essential (primary) hypertension, J45.909 - Unspecified asthma, uncomplicated, M19.90 - Unspecified osteoarthritis, unspecified site, Z68.39 - Body mass index [BMI] 39.0-39.9, adult H Pylori Breath Test Today E66.9 - Obesity, unspecified, F41.9 - Anxiety disorder, unspecified, I10 - Essential (primary) hypertension, J45.909 - Unspecified asthma, uncomplicated, M19.90 - Unspecified osteoarthritis, unspecified site, Z68.39 - Body mass index [BMI] 39.0-39.9, adult Vitamin D 25-OH Total Today E66.9 - Obesity, unspecified, F41.9 - Anxiety disorder, unspecified, I10 - Essential (primary) hypertension, J45.909 - Unspecified asthma, uncomplicated, M19.90 - Unspecified osteoarthritis, unspecified site, Z68.39 - Body mass index [BMI] 39.0-39.9, adult US abdomen comp w elastography Today E66.9 - Obesity, unspecified, F41.9 - Anxiety disorder, unspecified, I10 - Essential (primary) hypertension, J45.909 - Unspecified asthma, uncomplicated, M19.90 - Unspecified osteoarthritis, unspecified site, Z68.39 - Body mass index [BMI] 39.0-39.9, adult ECG 12 lead EKG Today E66.9 - Obesity, unspecified, F41.9 - Anxiety disorder, unspecified, I10 - Essential (primary) hypertension, J45.909 - Unspecified asthma, uncomplicated, M19.90 - Unspecified osteoarthritis, unspecified site, Z68.39 - Body mass index [BMI] 39.0-39.9, adult Insulin Today E66.9 - Obesity, unspecified, F41.9 - Anxiety disorder, unspecified, I10 - Essential (primary) hypertension, J45.909 - Unspecified asthma, uncomplicated, M19.90 - Unspecified osteoarthritis, unspecified site, Z68.39 - Body mass index [BMI] 39.0-39.9, adult Vitamin B12 and Folate Today E66.9 - Obesity, unspecified, F41.9 - Anxiety disorder, unspecified, I10 - Essential (primary) hypertension, J45.909 - Unspecified asthma, uncomplicated, M19.90 - Unspecified osteoarthritis, unspecified site, Z68.39 - Body mass index [BMI] 39.0-39.9, adult Zinc Today E66.9 - Obesity, unspecified, F41.9 - Anxiety disorder, unspecified, I10 - Essential (primary) hypertension, J45.909 - Unspecified asthma, uncomplicated, M19.90 - Unspecified osteoarthritis, unspecified site, Z68.39 - Body mass index [BMI] 39.0-39.9, adult PTHI Today E66.9 - Obesity, unspecified, F41.9 - Anxiety disorder, unspecified, I10 - Essential (primary) hypertension, J45.909 - Unspecified asthma, uncomplicated, M19.90 - Unspecified osteoarthritis, unspecified site, Z68.39 - Body mass index [BMI] 39.0-39.9, adult TSH reflex Free T4 Today E66.9 - Obesity, unspecified, F41.9 - Anxiety disorder, unspecified, I10 - Essential (primary) hypertension, J45.909 - Unspecified asthma, uncomplicated, M19.90 - Unspecified osteoarthritis, unspecified site, Z68.39 - Body mass index [BMI] 39.0-39.9, adult Hemoglobin A1c Today E66.9 - Obesity, unspecified, F41.9 - Anxiety disorder, unspecified, I10 - Essential (primary) hypertension, J45.909 - Unspecified asthma, uncomplicated, M19.90 - Unspecified osteoarthritis, unspecified site, Z68.39 - Body mass index [BMI] 39.0-39.9, adult XR chest 2V Today E66.9 - Obesity, unspecified, F41.9 - Anxiety disorder, unspecified, I10 - Essential (primary) hypertension, J45.909 - Unspecified asthma, uncomplicated, M19.90 - Unspecified osteoarthritis, unspecified site, Z68.39 - Body mass index [BMI] 39.0-39.9, adult FL upper GI w air Today E66.9 - Obesity, unspecified, F41.9 - Anxiety disorder, unspecified, I10 - Essential (primary) hypertension, J45.909 - Unspecified asthma, uncomplicated, M19.90 - Unspecified osteoarthritis, unspecified site, Z68.39 - Body mass index [BMI] 39.0-39.9, adult Referrals Behavioral Health Referral E66.9 - Obesity, unspecified, F41.9 - Anxiety disorder, unspecified, I10 - Essential (primary) hypertension, J45.909 - Unspecified asthma, uncomplicated, M19.90 - Unspecified osteoarthritis, unspecified site, Z68.39 - Body mass index [BMI] 39.0-39.9, adult Nutrition/Dietitian Referral E66.9 - Obesity, unspecified, F41.9 - Anxiety disorder, unspecified, I10 - Essential (primary) hypertension, J45.909 - Unspecified asthma, uncomplicated, M19.90 - Unspecified osteoarthritis, unspecified site, Z68.39 - Body mass index [BMI] 39.0-39.9, adult Telehealth Telehealth Location of provider rendering services: practice address Location of patient: address on file Patient Identification confirmed using: Name, : Yes Telehealth method: voice only Patient verbally consented to treatment: Yes Patient verbally consented to billing insurance company: Yes Patient informed of any privacy concerns related to visit: Yes Minutes spent on Phone/Video with Pt.: 50 Coding Level of Care Code Tele [facility] Pt Level 4 (74345) Diagnoses Obesity E66.9 BMI 39.0-39.9,adult Z68.39 Hypertension I10 DJD (degenerative joint disease) M19.90 Anxiety F41.9 Asthma J45.909 Time Spent (min) 50
== END 2023-05-28 10:58 | disposition home or self-care (01) ==
LOC: HO.HBS 08:12
PROVIDERS: PCP Internal Medicine; Visit Provider Surgery
DX: E66.9 Obesity, unspecified (principal); Z68.39 Body mass index [BMI] 39.0-39.9, adult; I10 Essential (primary) hypertension; M19.90 Unspecified osteoarthritis, unspecified site; F41.9 Anxiety disorder, unspecified; J45.909 Unspecified asthma, uncomplicated
CPT/HCPCS: 99443

== ENCOUNTER → 2023-05-28 08:12 | Outpatient (BNVA) | payer BC, SELFPAY | PROVIDERS: PCP Internal Medicine; Visit Provider Surgery ==

== ENCOUNTER 2024-05-23 17:49 | Emergency (ER) | payer BC, SELFPAY ==
--- NOTE | ~2024-05-23 | CT_ITS ---
EXAMINATION: CT CERVICAL SPINE WITHOUT CONTRAST CLINICAL INFORMATION: Trauma, neck pain COMPARISON: None. TECHNIQUE: Contiguous axial noncontrast CT imaging was acquired through the cervical spine and source images were reviewed along with axial reconstructions and sagittal and coronal MPRs. All CT exams at this location are performed using dose optimization techniques as appropriate to a performed exam including at least one of the following: * Automated exposure control * Adjustment of the mA and/or kV according to patient size (this includes techniques or standardized protocols for targeted exams where dose is matched to indication / reason for exam; i/e/ extremities or head) * Use of iterative reconstructive technique DLP: 668 mGy-cm FINDINGS: CERVICAL SPINE: Reversal of the normal cervical lordosis which may be due to muscle spasm There is no evidence of acute cervical spine fracture. Vertebral body height and alignment is well maintained. No pre- or paravertebral soft tissue abnormality is identified. Disc spaces and facet joints are well maintained. Limited assessment of the lung apices is unremarkable. CT/CT cervical spine wo IV con IMPRESSION: No acute process. Reversal of the normal cervical lordosis which may be due to muscle spasm. Electronically signed by: Júnior Leslie MD 05/23/2024 10:29 PM [facility]
--- NOTE | ~2024-05-23 | XR_ITS ---
EXAMINATION: XR CHEST CLINICAL INFORMATION: Chest pain COMPARISON: None available. TECHNIQUE: Frontal view of the chest was obtained. FINDINGS: No significant abnormality is noted involving the heart, lungs, mediastinum, bony thorax or soft tissues. XR/XR chest 1V IMPRESSION: Unremarkable examination. Electronically signed by: Vicente Frances MD 05/23/2024 07:16 PM [facility]
[2024-05-23 17:53] VITALS: BP 173/85; PULSE 81; RESP 19; TEMP 36.8; O2SAT 98; BMI 33.5
--- NOTE | 2024-05-23 17:58 | ECG_ITS ---
Test Reason : CHEST PAIN Blood Pressure : / mmHG Vent. Rate : 077 BPM Atrial Rate : 077 BPM P-R Int : 152 ms QRS Dur : 100 ms QT Int : 384 ms P-R-T Axes : 013 004 014 degrees QTc Int : 434 ms Normal sinus rhythm Minimal voltage criteria for LVH, may be normal variant ( R in aVL ) Borderline ECG No previous ECGs available Referred By: Jose Snell Electronically Signed By:YUNIEL MACIAS MD
[2024-05-23 18:24] LABS: MANUAL DIFF FLAG NO
--- NOTE | 2024-05-23 18:25 | ED.GENADULT ---
HPI - General Adult General Chief complaint: General Medical Stated complaint: headache, chest pain Time Seen by Provider: 05/23/24 18:39 Source: patient Limitations: no limitations History of Present Illness ED Provider: Renetta Soriano PA-C HPI narrative: 39 y/o female with a history of morbid obesity, anxiety, asthma, degenerative joint disease and hypertension presents with neck pain x2 days. Patient states she is having pain over anterior bilateral neck, subtle movements induced the discomfort she describes it as a severe throbbing sensation. The pain radiates to upper anterior chest. The pain is worse with palpation of chest wall. Associated generalized headache. Eyes repetitive activity, trauma, preceding heavy lifting. Patient denies prior injury to her neck. Denies dizziness, visual changes, nausea, vomiting, photo phobia or phonophobia. Denies paresthesia, upper extremity weakness or radiation of pain into the arm. Patient has been using [id number] Excedrin, the headache briefly resolved send returns. Related Data Home Medications ?Medication ?Instructions ?Recorded ?Confirmed albuterol sulfate 90 mcg/actuation 2 puff inhalation Q6H PRN 05/12/23 05/28/23 aerosol inhaler buspirone 5 mg tablet 5 mg PO BID 05/12/23 05/28/23 ferrous sulfate 325 mg (65 mg 325 mg PO DAILY 05/12/23 05/28/23 iron) tablet (FeroSul) labetalol 100 mg tablet 100 mg PO BID 05/12/23 05/28/23 multivitamin 1 tab PO DAILY 05/12/23 05/28/23 Previous Rx's ?Medication ?Instructions ?Recorded meloxicam 15 mg tablet 15 mg PO DAILY PRN pain #5 tabs 05/23/24 methocarbamol 750 mg tablet 1,500 mg (2 x 750 mg) PO Q8H PRN 05/23/24 pain #20 tabs Allergies Allergy/AdvReac Type Severity Reaction Status Date / Time No Known Allergies Allergy Verified 05/23/24 17:54 Review of Systems Review of Systems: Yes all other systems are reviewed and are negative Constitutional: Constitutional: Denies fatigue and Denies fever(s) Eyes: Eyes: Denies change in vision ENT: Reports neck pain Cardiovascular: Cardiovascular: Reports chest pain and Denies dyspnea Respiratory: Respiratory: Denies cough and Denies dyspnea Gastrointestinal: Gastrointestinal: Denies nausea and Denies vomiting Musculoskeletal: Musculoskeletal: Denies muscle weakness, Reports neck pain, Denies numbness, Denies radiating pain into limb and Denies tingling Neurologic: Denies numbness and Denies tingling Endocrine: Endocrine: Denies fatigue [facility] Past Medical History Attestation statement: The following information was validated with the patient. Medical History (Updated 05/24/24 @ 00:01 by Kaushik Gallo) Asthma DJD (degenerative joint disease) Surgical History (Updated 05/28/23 @ 08:47 by Joan Aguilar CMA) No history of previous surgery Family History Family History (Updated 05/28/23 @ 08:49 by Joan Aguilar CMA) Mother Diabetes Hypertension Arthritis Father No problems noted. Social History Social History (Updated 05/28/23 @ 08:48 by Joan Aguilar CMA) Alcohol intake: current Alcohol intake frequency: holidays/special occasions only Alcohol type: wine Patient Tobacco Use Status: Never used Tobacco Smoked in Last 30 Days: No Advance Directives: No Advance Directives Information Provided: No Do you have a plan to hurt others: No Plan Patient : No Physical Exam ED Vital Signs: Vital Signs - 24 hr 05/23/24 17:53 05/23/24 20:00 05/23/24 22:00 Temperature 98.3 F Pulse Rate 81 76 65 Respiratory Rate 19 18 18 Blood Pressure 173/85 H 157/90 H 165/96 H Pulse Oximetry 98 98 99 Oxygen Delivery Method Room Air Room Air Room Air 05/23/24 22:51 Temperature 98.6 F Pulse Rate 65 Respiratory Rate 18 Blood Pressure 165/96 H Pulse Oximetry 99 Oxygen Delivery Method Room Air BMI result Body Mass Index 33.5 Const Other: Alert, overall well-appearing, does appear older than stated age Orientation/consciousness: patient oriented x3 Neck Other: Soft, supple, full range of motion, movement of neck at times elicits acute onset discomfort, occurs randomly Chest Other: Left upper anterior chest tender to palpation, no overlying erythema warmth, ecchymosis or deformity Resp Other: Nonlabored respiration Cardio Other: Normal peripheral perfusion Skin Other: Warm dry no rash Neuro General: patient oriented x3, gait normal, no focal motor deficits and CN's II-XI intact bilaterally Psych Other: Operative, but does appear anxious Course Course Course Narrative: RME: 39-year-old female presents to ED for headache, and left-sided chest pain left-sided neck pain past couple of days without any shortness of breath. Patient denies any nausea or vomiting. Patient denies any fever, chills, photophobia. EKG labs ordered Medications Administered Discontinued Medications Generic Name Dose Route Start Last Admin Trade Name Roxane PRN Reason Stop Dose Admin Acetaminophen 975 mg 05/23/24 19:01 05/23/24 19:10 Acetaminophen 325 Mg Tablet PO 05/23/24 19:02 975 mg ONCE ONE Administration Ketorolac Tromethamine 15 mg 05/23/24 19:01 05/23/24 19:10 Ketorolac Tromethamine 15 Mg/Ml Vial IM 05/23/24 19:02 15 mg ONCE ONE Administration Methocarbamol 750 mg 05/23/24 19:01 05/23/24 19:10 Methocarbamol 750 Mg Tablet PO 05/23/24 19:02 750 mg ONCE ONE Administration Methocarbamol 750 mg 05/23/24 21:30 05/23/24 21:45 Methocarbamol 750 Mg Tablet PO 05/23/24 21:31 750 mg ONCE ONE Administration Medical Decision Making Medical Decision Making MDM Narrative: 39 y/o female with a history of morbid obesity, anxiety, asthma, degenerative joint disease and hypertension presents with neck pain x2 days. Patient states she is having pain over anterior bilateral neck, subtle movements induced the discomfort she describes it as a severe throbbing sensation. The pain radiates to upper anterior chest. The pain is worse with palpation of chest wall. Associated generalized headache. Eyes repetitive activity, trauma, preceding heavy lifting. Patient denies prior injury to her neck. Denies dizziness, visual changes, nausea, vomiting, photo phobia or phonophobia. Denies paresthesia, upper extremity weakness or radiation of pain into the arm. Patient has been using [id number] Excedrin, the headache briefly resolved send returns. Problem: Underlying degenerative joint disease, anxiety, obesity History: Per patient I have considered the following differential diagnoses: VAD, migraine, tension headache, meningitis, cervical radiculopathy, ACS Plan: The patient's discomfort is reproducible with movement of the neck and palpation of upper chest wall, this is musculoskeletal in nature, she just does not have a definitive mechanism of injury. We will be treating with anti-inflammatory and muscle relaxant. She does have underlying degenerative joint disease, were had she is developing degenerative changes in the neck, we will obtain a CT scan. ACS was considered, however again this is an atypical presentation, it is most consistent with chest wall strain, a screening labs including troponin EKG chest x-ray were obtained. Thought about VAD, how over there was no preceding heavy lifting injury, she is neurologically intact. In regard to the headache, it is not migrainous in nature, given concurrent neck pain/strain, this could be a tension type headache. Thought about meningitis, however there are no meningeal signs on exam, she has not been ill and she is afebrile. I have independently reviewed the following tests: Labs: No leukocytosis, not anemic, no electrolyte abnormality, troponin < 2.7 EKG: Normal sinus rhythm, rate of 77, no ischemic changes no ectopy Chest x-ray: XR/XR chest 1V IMPRESSION: Unremarkable examination. Electronically signed by: Vicente Frances MD 05/23/2024 07:[address] cervical spine: CT/CT cervical spine wo IV con IMPRESSION: No acute process. Reversal of the normal cervical lordosis which may be due to muscle spasm. Electronically signed by: Júnior Leslie MD 05/23/2024 10:29 PM EST RP Lab Data 05/23/24 17:58 05/23/24 18:19 Labs: Lab Results 05/23/24 05/23/24 05/23/24 Range/Units 17:58 18:19 19:09 WBC 9.2 (4.8-10.8) X10*3/uL RBC 4.66 (4.20-5.50) X10*6/uL Hgb 12.0 (12.0-16.0) g/dl Hct 37.3 (37.0-47.0) % MCV 80.0 (80.0-98.0) fL MCH 25.8 L (27.0-33.0) pg MCHC 32.2 (31.0-35.0) g/dl RDW 14.6 (11.0-16.0) % Plt Count 299 (160-400) X10*3/uL MPV 9.2 L (9.4-12.3) fL Immature Gran % (Auto) 0.3 (0.0-0.4) % Neut % (Auto) 64.7 (45-73) % Lymph % (Auto) 25.4 (20-40) % [place] % (Auto) 6.4 (2-11) % Eos % (Auto) 2.7 (0-4) % Baso % (Auto) 0.5 (0-2) % Lymph # (Auto) 2.3 (1.2-4.9) X10*3/uL [place] # (Auto) 0.6 (0.1-1.2) X10*3/uL Eos # (Auto) 0.3 (0.0-0.4) X10*3/uL Baso # (Auto) 0.1 (0.0-0.2) X10*3/uL Abs Immat Gran (auto) 0.03 (0.00-0.03) X10*3/uL Absolute Neuts (auto) 5.9 (2.0-8.3) x10*3/uL Absolute Nucleated RBC 0.000 (0.0-0.012) X10*3/uL Nucleated RBC % (auto) 0.0 (0.0-0.2) /100WBC PT 10.9 (10.9-12.4) SEC INR 0.9 (0.9-1.1) APTT 25.7 L (26.0-36.8) SEC Sodium 139 (135-145) mmol/L Potassium 4.0 (3.3-5.1) mmol/L Chloride 104 (96-108) mmol/L Carbon Dioxide 26 (22-29) mmol/L Anion Gap 13 (12-20) BUN 15 (9-16) mg/dL Creatinine 0.63 (0.5-1.4) mg/dL Estim Creat Clear Calc 148.2 Estimated GFR > 60 Random Glucose 94 (60-115) mg/dL Calcium 9.4 (8.4-10.2) mg/dL Total Bilirubin 0.1 (0.0-1.0) mg/dL AST 21 (5-31) U/L ALT 25 (0-31) U/L Alkaline Phosphatase 84 (39-117) U/L Troponin I High Sens < 2.7 (<3.5-17.0) ng/L Total Protein 7.3 (6.5-8.0) g/dL Albumin 4.1 (3.5-5.0) g/dL Influenza Type A (PCR) NEGATIVE (Negative) Influenza Type B (PCR) NEGATIVE (Negative) RSV RNA Qual (PCR) NEGATIVE (Negative) SARS-CoV-2 RNA (RT-PCR) NEGATIVE (Negative) S. pyogenes GrpA HERO Negative (Negative) Discharge Plan Discharge Clinical Impression: Cervical paraspinal muscle spasm Patient Disposition: Home, Self-Care Instructions: Muscle Spasm (ED) Additional Instructions: You were having muscle spasm of the paraspinous muscle distribution of the cervical spine. See home care instructions. Use the meloxicam as directed, this is an anti-inflammatory. Use the methocarbamol as needed for pain and spasm, this is a muscle relaxant. To know it will cause drowsiness do not drive or operate machinery while taking the medication. Follow up with your primary care provider as needed. To know all of your screening labs including a cardiac enzymes were normal, there were no concerning changes on her EKG in your chest x-ray was clear. Prescriptions: New meloxicam 15 mg tablet 15 mg PO DAILY PRN (Reason: pain) Qty: 5 0RF methocarbamol 750 mg tablet 1,500 mg PO Q8H PRN (Reason: pain) Qty: 20 0RF No Action labetalol 100 mg tablet 100 mg PO BID ferrous sulfate [FeroSul] 325 mg (65 mg iron) tablet 325 mg PO DAILY multivitamin Tablet 1 tab PO DAILY buspirone 5 mg tablet 5 mg PO BID albuterol sulfate 90 mcg/actuation HFA aerosol inhaler 2 puff inhalation Q6H PRN Interventions: ED Discharge Assessment Last Done: 05/23/24 22:51 Discharge Date/Time: 05/23/24 22:51 Print Language: Cameroonian
[2024-05-23 18:29] LABS: Basophils Absolute Auto 0.1 X10*3/uL (0.0-0.2); Basophils Percent Auto 0.5 % (0-2); Eosinophils Absolute Auto 0.3 X10*3/uL (0.0-0.4); Eosinophils Percent Auto 2.7 % (0-4); Hematocrit 37.3 % (37.0-47.0); Imm Gran Abs Auto 0.03 X10*3/uL (0.00-0.03); Imm Gran Pct Auto 0.3 % (0.0-0.4); Lymphocytes Absolute Auto 2.3 X10*3/uL (1.2-4.9); Lymphocytes Percent Auto 25.4 % (20-40); Mean Corpuscular HGB Conc 32.2 g/dl (31.0-35.0); Mean Corpuscular Hemoglobin 25.8 pg (27.0-33.0); Mean Platelet Volume 9.2 fL (9.4-12.3); Monocytes Absolute Auto 0.6 X10*3/uL (0.1-1.2); Monocytes Percent Auto 6.4 % (2-11); Neutrophils Absolute Auto 5.9 x10*3/uL (2.0-8.3); Neutrophils Percent Auto 64.7 % (45-73); Platelet Count 299 X10*3/uL (160-400); Red Blood Count 4.66 X10*6/uL (4.20-5.50); Red Cell Distribution Width 14.6 % (11.0-16.0); White Blood Count 9.2 X10*3/uL (4.8-10.8)
[2024-05-23 18:31] LABS: INTERNATIONAL NORM RATIO 0.9 (0.9-1.1); Prothrombin Time 10.9 SEC (10.9-12.4)
[2024-05-23 18:33] LABS: Partial Thromboplastin Time 25.7 SEC (26.0-36.8)
[2024-05-23 18:42] LABS: Alanine Aminotransferase 25 U/L (0-31); Albumin Level 4.1 g/dL (3.5-5.0); Alkaline Phosphatase 84 U/L (39-117); Anion Gap 13 (12-20); Aspartate Amino Transferase 21 U/L (5-31); Bilirubin Total 0.1 mg/dL (0.0-1.0); Blood Urea Nitrogen 15 mg/dL (9-16); Calcium 9.4 mg/dL (8.4-10.2); Carbon Dioxide 26 mmol/L (22-29); Chloride 104 mmol/L (96-108); Creatinine Clr Calc Pharmacy 148.2; Estimated Glomerular Filt Rate > 60; Glucose Random 94 mg/dL (60-115); Sodium 139 mmol/L (135-145); Total Protein 7.3 g/dL (6.5-8.0)
[2024-05-23 18:48] LABS: Troponin-I High Sensitivity < 2.7 ng/L (<3.5-17.0)
--- NOTE | 2024-05-23 18:51 | PC.NURSE ---
received report from Luana DAVENPORT, assume care of pt at this time
[2024-05-23] MEDS: Ketorolac Tromethamine 15 MG/ML VIAL IM (19:10)
[2024-05-23] MEDS: Acetaminophen 325 MG TABLET 975 MG PO (19:10)
[2024-05-23] MEDS: methocarbamoL 750 MG TABLET PO ×2 (19:10→21:45)
[2024-05-23 19:25] LABS: IDNOW Serial# 08D9AD1C
[2024-05-23 19:26] LABS: Strep A Nucleic Acid Negative (Negative)
[2024-05-23 19:52] LABS: Influenza A PCR NEGATIVE (Negative); Influenza B PCR NEGATIVE (Negative); Resp Syncy Virus RNA Qual PCR NEGATIVE (Negative); SARS COV2 PCR INHOUSE NEGATIVE (Negative)
[2024-05-23 20:00] VITALS: BP 157/90; PULSE 76; RESP 18; O2SAT 98
--- NOTE | 2024-05-23 20:23 | PC.NURSE ---
Pt c/o of head and neck pain, s/p getting up and throwing something into the trash. States her head and neck is pounding. 04/15 pain, Informed Edwin PRIETO
[2024-05-23 22:00] VITALS: BP 165/96; PULSE 65; RESP 18; O2SAT 99
[2024-05-23 22:51] VITALS: BP 165/96; PULSE 65; RESP 18; TEMP 37; O2SAT 99
== END 2024-05-23 22:51 | disposition home or self-care (01) ==
PROVIDERS: Physician Assistant; Emergency Provider Emergency Medicine Emergency Medical Services; PCP Internal Medicine
DX: M54.2 Cervicalgia (principal); R51.9 Headache, unspecified; M62.838 Other muscle spasm; R00.2 Palpitations; R10.9 Unspecified abdominal pain; I10 Essential (primary) hypertension; R07.89 Other chest pain; Z79.899 Other long term (current) drug therapy; Z03.818 Encounter for observation for suspected exposure to other biological agents ruled out
CPT/HCPCS: 0241U; 71045; 72125; 80053; 84484; 85025; 85610; 85730; 87651; 93005; 96372; 99284; 99285; J1885

== ENCOUNTER → 2024-05-23 17:58 | Outpatient (BNV) | payer BC, SELFPAY | PROVIDERS: Emergency Provider Emergency Medicine Emergency Medical Services; PCP Internal Medicine; Visit Provider Internal Medicine Cardiovascular Disease | DX: R07.9 Chest pain, unspecified (principal) | CPT/HCPCS: 93010 ==

== ENCOUNTER 2025-05-16 05:25 | Emergency (ER) | payer BC, SELFPAY ==
--- OUTSIDE RECORDS SUMMARY | 2024-01-01 09:00 | XMS_ITS ---
Author Organization [facility] [address] Address [address] [place] [address] Care Team Providers Care Manager Motor Name Role Phone JAIME BEARDEN Unavailable [phone] Encounters Encounter Location Date Provider Diagnosis [facility] [address] [address] 01/01/2024 JAIME BEARDEN Plan Of Treatment No Information Progress Notes * Elizabeth SERVINOB:1985 (40 yo F)Acc No.[id number]:01/01/2024 Patient: Rosie Sykes Provider: Babar BEARDEN NP :1985 A ge:38 Y S ex:Female Date:01/01/2024 Address:[address] [place] [address] * Electronic signature of SANTANA BEARDEN on 05/16/2025 at 05:58 AM EST Sign off status: Pending * Provider: Babar BEARDEN NP Date: 0 01/01/2024 Generated for Armin paniagua/Kwasi/eTransmitting on: 1 07/16/2024 05:58 AM EST
--- NOTE | 2025-05-16 | ECG_ITS ---
Test Reason : CHEST PAIN Blood Pressure : */* mmHG Vent. Rate : 77 BPM Atrial Rate : 77 BPM P-R Int : 158 ms QRS Dur : 104 ms QT Int : 386 ms P-R-T Axes : 30 6 27 degrees QTcB Int : 436 ms Normal sinus rhythm Moderate voltage criteria for LVH, may be normal variant ( R in aVL , Fidencio product ) Borderline ECG When compared with ECG of 23-May-2024 17:51, No significant change was found Referred By: Generic ED Physician Electronically Signed By: YUNIEL MACIAS MD
--- NOTE | ~2025-05-16 | CT_ITS ---
EXAMINATION: CT HEAD WITHOUT CONTRAST CLINICAL INFORMATION: headache, tingling L side COMPARISON: None available. TECHNIQUE: Contiguous axial imaging was performed from the skull base to vertex without intravenous administration of contrast. This CT examination was performed using dose optimization techniques as appropriate, variously including the following: *Automated exposure control *Adjustment of mA and/or kV according to patient size (this includes techniques or standardized protocols for targeted exams where dose is matched to indication/reason for exam; i.e. extremities or head) *Use of iterative reconstruction technique DLP: 715 mGy-cm FINDINGS: No acute intracranial hemorrhage, mass effect, midline shift, hydrocephalus or herniation. [place]-white matter differentiation is normal. Sellar/suprasellar region demonstrated no gross masses. Craniocervical junction is intact with normal position of the cerebellar tonsils. No air-fluid levels in the paranasal sinuses. Tympanic cavities and mastoid cells are aerated with poor pneumatization of the right mastoid. Pneumatization of the right petrous apex. Poor pneumatization of the left frontal sinus. 4 mm calcification beneath the skin of the left prezygomatic region. CT/CT head/brain wo IV con IMPRESSION: No acute or structural brain abnormality by CT. Electronically signed by: Isra Gonzales MD 05/16/2025 08:21 AM VIKKI
[2025-05-16 05:33] VITALS: BP 162/84; PULSE 82; RESP 18; TEMP 36.2; O2SAT 99; BMI 38.0
--- OUTSIDE RECORDS SUMMARY | 2025-05-16 05:58 | XMS_ITS | Clinical Summary ---
Author Organization [facility] Address [address] [place] [address] Phone Care Team Providers Care Special Education Secretary Name Role Phone Veronica Beard MD Primary Care Provider [phone] Allergies No known active allergies Medications SUMAtriptan (IMITREX) 25 mg tablet Take 1 tablet (25 mg total) by mouth 1 (one) time if needed for migraine. May repeat dose once in 2 hours if no relief. Do not exceed 2 doses in 24 hours. 30 tablet 05/19/2024 Active ascorbic acid (VITAMIN C) 500 mg chewable tablet Take by mouth daily. Active multivit-min/jessi paul fumarate (MULTI VITAMIN ORAL) 1 tab daily Active CHOLECALCIFEROL, VITAMIN D3, ORAL Take 1,000 Units by mouth 1 (one) time each day. Active labetaloL (NORMODYNE) 100 mg tablet Take 1 tablet (100 mg total) by mouth every 12 (twelve) hours. 180 tablet 1 01/27/2025 Active ferrous sulfate 325 mg (65 mg elemental iron) tablet Take 1 tablet (325 mg total) by mouth 1 (one) time each day. 90 tablet 1 01/27/2025 Active Active Problems Problem Noted Date Diagnosed Date Osteoarthritis of thoracic spine 07/30/2024 Anxiety 11/18/2022 Iron deficiency anemia 07/26/2022 Atopic dermatitis 07/16/2021 Hypertension 06/14/2021 Mild reactive airways disease 07/25/2015 Overview (05/25/2024): PFTs normal Severe obesity (BMI 35.0-39. 9) with comorbidity ([facility] V24, [facility] V28) 05/23/2009 GERD (gastroesophageal reflux disease) 8 Resolved Problems Problem Noted Date Diagnosed Date Resolved Date Family history of breast cancer 07/30/2024 01/27/2025 Immunizations Immunization Administration Dates Next Due HPV, Quadrivalent 07/30/2010,03/19/2010,01/09/20 10 Influenza Quadravalent, MDCK , 0.5ml, preservative free (Flucelvax) 6mo and older 03/25/2023,05/31/2022 Influenza trivalent, 0.5mL, preservative free (Fluarix; FluLaval; Fluzone) ages 6mo and older (Afluria) 3 years and older 04/22/2024 Influenza, Unspecified 05/17/2022,04/17/2021, Meningococcal Polysaccharide 02/28/2003 Pfizer (ages 12 & older) ROSA S-CoV-2 COVID-19, mRNA, LNP-S, lucie-sucrose, preservative free 01/14/2022 Pfizer SARS-CoV-2 COVID-19, mRNA, LNP-S, preservative free 10/09/2020,09/12/2020 Pneumococcal conjugate 20 va lent (Prevnar 20, PCV 20) 2mo and older 05/07/2023 Td Tetanus diptheria (Tdvax) 7yo and older 03/25,09/18/1999 Tdap Tetanus diptheria acell ular pertussis (Boostrix; Adacel) 7yo and older 04/21/2012 Surgical History Surgery Date Site/Laterality Comments ESOPHAGOGASTRODUODENOSCOPY 02/15/08 Normal esophagus-bx:Normal, Nl stomach-bx:reactive gastropathy and Nl duodenum Medical History Medical History Date Comments Obesity 05/23/2009 Mild reactive airways disease 07/25/2015 Hypertension 06/14/2021 Family History Medical History Relation Name Comments Lung cancer Father Diabetes Mother HTN, endometria l cancer Breast cancer Other mat cousin 40s Relation Name Status Comments Father Mother Other Alive Social History Tobacco Use Types Packs/Day Years Used Date Smoking Tobacco: Never Smokeless Tobacco: Never Tobacco Cessation:Counseling Given: Not Answered Alcohol Use Standard Drinks/Week Comments No 0 (1 standard drink = 0.6 oz pur e alcohol) Housing Instability Answer Date Recorde d Are you worried that in the next 2 months you may not have stable housing? No 05/28/2024 Food Access & Nutrition Answer Date Rec orded Do you have access to a vari ety of food including fruits and vegetables? Yes 05/28/2024 Health Literacy Answer Date Recorded How often do you need to hav e someone help you when you read instructions, pamphlets, or other written material from your doctor or pharmacy? Never 05/28/2024 Caregiver: How often do you need to have someone help you when you read instructions, pamphlets, or other written material from your doctor or pharmacy? Not on file 05/28/2024 Financial Risk Answer Date Recorded How hard is it for you to pa y for the very basics like food, housing, medical care, and air conditioning / heating? Not very hard 05/28/2024 Transportation Answer Date Recorded Has the lack of transportati on kept you from meetings, work, or from getting things needed for daily living? No Has the lack of transportati on kept you from medical appointments or from getting medications? No 05/28/2024 Social Isolation Answer Date Recorded How often do you feel lonely or isolated from th ose around you? Never 05/28/2024 Food Risk Answer Date Recorded Within the past 12 months we worried whether our food would run out before we got money to buy more. Never true 05/28/2024 Within the past 12 months th e food we bought just didn't last and we didn't have money to get more. Never true 05/28/2024 Dependent Care Answer Date Recorded Do you need help finding or paying for care for your loved ones. For example, child welfare manager or elderly care for an older adult? No 05/28/2024 Education Answer Date Recorded Do you think completing more education or training, like finishing a GED, going to college, or learning a trade, would be helpful for you? No 05/28/2024 Employment and Income Answer Date Recor ded During the last four weeks, have you been actively looking for work? No 05/28/2024 Living Situation Answer Date Recorded What is your living situation? Unrecognized valu e 05/28/2024 Comments No Sex and Gender Information Value Date Recorded Sex Assigned at Not on file Legal Sex Female 6:20 AM EST Gender Identity Not on file Sexual Orientation Not on file Obstetrics History Last Filed Vital Signs Vital Sign Reading Time Taken Comments Blood Pressure 124/70 01/27/2025 8:38 AM EDT Pulse 74 01/27/2025 8:38 AM EDT Temperature 35.8 C (96.5 F) 01/27/2025 8:38 AM EDT Respiratory Rate 16 01/27/2025 8:38 AM EDT Oxygen Saturation 98% 01/27/2025 8:38 AM EDT Inhaled Oxygen Concentration - - Weight 112 kg (248 lb) 01/27/2025 8:38 AM EDT Height 172.7 cm (5' 8 ) 01/27/2025 8:38 AM EDT Body Mass Index 37.71 01/27/2025 8:38 AM EDT Plan of Treatment Upcoming Encounters Date Type Department Care Team (Late st Contact Info) Description 05/16/2025 8:30 AM EST Office Visit Adult Medicine [address] [phone] Veronica eBard MD [address] [place] [address] 05/19/2025 2:00 PM EST Office Visit Adult Medicine [address] [phone] Veronica Beard MD [address] [place] [address] Health Maintenance Due Date Last Done Comments Breast Cancer Screening 1985 Hepatitis B Vaccines (1 of 3 - 19+ 3-dose series) 2004 Influenza Vaccine (#1) 2025 , 03/25/2023, 05/31/2022, Additional history exists Social Influencers of Health Screening 05/28/2025 05/28/2024 Hypertension/CHF/CAD Annual BMP Blood Test 09/07/2025 09/07/2024, 11/18/2022 Cervical Cancer Screening: Pap Smear 01/19/2027 01/20/2024, 11/02/2013, 11/02/2013 Cholesterol Screening (Lipid Panel) 09/07/2029 09/07/2024, 06/18/2022 DTaP,Tdap,and Td Vaccines (4 - Td or Tdap) 03/25/2033 03/25/2023, 04/21/2012, 09/18/1999 RSV Immunization Adult Patients (1 - 1-dose 75+ series) 2060 Meningococcal ACWY Vaccine Aged Out 02/28/2003 N o longer eligible based on patient's age to complete this topic HPV Vaccines Completed 07/30/2010, 03/07, 01/08/2010 HIV Screening Completed 11/02/2013 Hepatitis C Screening Completed 11/02/2013 COVID-19 Vaccine Discontinued 01/14/2022, , 10/09/2020, Additional history exists Pneumococcal Vaccine: Pediatrics (0 to 5 Years) and At-Risk Patients (6 to 49 Years) Aged Out 05/07/2023 No longer eligible based on patient's age to complete this topic Depression Screening Completed 07/28/2024 HIB Vaccines Aged Out No longer eligi ble based on patient's age to complete this topic Hepatitis A Vaccines Aged Out No long er eligible based on patient's age to complete this topic IPV Vaccines Aged Out No longer eligi ble based on patient's age to complete this topic MMR Vaccines Aged Out No longer eligi ble based on patient's age to complete this topic Meningococcal B Vaccine Aged Out No l onger eligible based on patient's age to complete this topic RSV Immunization Patients Under 20 months Aged Out No longer eligible based on patient's age to complete this topic Varicella Vaccines Aged Out No longer eligible based on patient's age to complete this topic Procedures Procedure Name Priority Date/Time Associated Diagnosis Comments COMPREHENSIVE METABOLIC PANEL Routine 09/07/2024 9:30 AM EST Hypertension, unspecified type Adult general medical examination LIPID PANEL WITH REFLEX TO DIRECT LDL Routine 09/07/2024 9:30 AM EST Hypertension, unspecified type Adult general medical examination HEPATITIS C SCREENING Routine 11/02/2013 HIV SCREENING Routine 11/02/2013 HPV Routine 11/02/2013 from Last 3 Months or Most Recently Relevant to Health Maintenance Results * (ABNORMAL) Lipid panel with reflex to direct LDL (09/07/2024 9:30 AM EST) Cholesterol 194 0 - 200 mg/dL LAB CHEMISTRY METHOD 09/07/2024 1:16 PM EST [facility] Triglycerides 172(H) 0 - 150 mg/dL LAB CHEMISTRY METHOD 09/07/2024 1:16 PM EST [facility] HDL 40 >=40 mg/dL LAB CHEMISTRY METHOD 09/07/2024 1:16 PM EST [facility] LDL Calculated 120(H) 0 - 100 mg/dL LAB CHEMISTRY METHOD 09/07/2024 1:16 PM EST [facility] VLDL Cholesterol Mehran 34.4 mg/dL LAB CHEMISTRY METHOD 09/07/2024 1:16 PM EST [facility] Non HDL Chol. (LDL+VLDL) 154(H) <145 mg/dL LAB CHEMISTRY METHOD 09/07/2024 1:16 PM EST [facility] Chol/HDL Ratio 4.9(H) 0.0 - 4.4 LAB CHEMISTRY METHOD 09/07/2024 1:16 PM EST [facility] Blood Venous blood specimen / Unknown Venipuncture / Unknown 09/07/2024 9:30 AM EST 09/07/2024 9:30 AM EST us Marti PRIETO LAB BLOOD ORDERABLES Final Resul t [facility] [address] [place] [address], [place] [phone] * (ABNORMAL) Comprehensive metabolic panel (09/07/2024 9:30 AM EST) Sodium 140 133 - 145 mmol/L LAB CHEMISTRY METHOD 09/07/2024 1:16 PM [facility] Potassium 4.0 3.5 - 5.5 mmol/L LAB CHEMISTRY METHOD 09/07/2024 1:16 PM [facility] Chloride 106 96 - 110 mmol/L LAB CHEMISTRY METHOD 09/07/2024 1:16 PM [facility] CO2 25 21 - 32 mmol/L LAB CHEMISTRY METHOD 09/07/2024 1:16 PM [facility] Anion Gap 9 3 - 11 LAB CHEMISTRY METHOD 09/07/2024 1:16 PM [facility] Glucose 85 70 - 100 mg/dL LAB CHEMISTRY METHOD 09/07/2024 1:16 PM [facility] BUN 19 5 - 25 mg/dL LAB CHEMISTRY METHOD 09/07/2024 1:16 PM [facility] Creatinine 0.47(L) 0.50 - 1.10 mg/dL LAB CHEMISTRY METHOD 09/07/2024 1:16 PM [facility] eGFR 124 >=60 mL/min/1. 73m2 LAB CHEMISTRY METHOD 09/07/2024 1:16 PM [facility] Comment:Calculation based on the Chronic Kidney Disease Epidemiology Collaboration (CKD-EPI) equation refit without adjustment for race. BUN/Creatinine Ratio 40.4 LAB CHEMISTRY METHOD 09/07/2024 1:16 PM [facility] Calcium 9.2 8.5 - 10.5 mg/dL LAB CHEMISTRY METHOD 09/07/2024 1:16 PM [facility] AST (SGOT) 22 10 - 42 unit/L LAB CHEMISTRY METHOD 09/07/2024 1:16 PM [facility] ALT (SGPT) 27 10 - 60 unit/L LAB CHEMISTRY METHOD 09/07/2024 1:16 PM EST [facility] Alkaline Phosphatase 74 42 - 121 unit/L LAB CHEMISTRY METHOD 09/07/2024 1:16 PM EST [facility] Total Protein 7.3 6.0 - 8.0 g/dL LAB CHEMISTRY METHOD 09/07/2024 1:16 PM EST [facility] Albumin 3.7 3.2 - 5.0 g/dL LAB CHEMISTRY METHOD 09/07/2024 1:16 PM EST [facility] Total Bilirubin 0.4 0.0 - 1.4 mg/dL LAB CHEMISTRY METHOD 09/07/2024 1:16 PM [facility] Blood Venous blood specimen / Unknown Venipuncture / Unknown 09/07/2024 9:30 AM EST 09/07/2024 9:30 AM EST Marti PRIETO LAB BLOOD ORDERABLES Final Resul t [facility] [address] [place] [address], * Cervical Cancer Screening: HPV (11/02/2013) [facility] Cervical Cancer Screening: HPV no interpretation , abstracted Historical Provider HEALTH MAINTENANCE Final Result * HIV Screening (11/02/2013) [facility] HIV Screening abstracted Historical Provider HEALTH MAINTENANCE Final Result * Hepatitis C Screening (11/02/2013) [facility] Hepatitis C Screening abstracted Historical Provider HEALTH MAINTENANCE Final Result from Last 3 Months or Most Recently Relevant to Health Maintenance Insurance [facility] Care Teams Special Education Secretary Relationship Specialty Start Date End Date Veronica Beard MD [address] [place] [address] PCP - General Internal Medicine 06/13/21
--- OUTSIDE RECORDS SUMMARY | 2025-05-16 05:59 | XMS_ITS ---
Author Name [facility] Organization Unknown Care Team Organization Name Specialty Phone Email Start Date End Da esa [facility]ly [facility] 04/08/2024
--- OUTSIDE RECORDS SUMMARY | 2025-05-16 05:59 | XMS_ITS | Patient Health Record ---
Author Organization [facility] [address] Address [address] [place] [address] Care Team Providers Care Mounter Clarinets Name Role Phone JAIME BEARDEN Unavailable [phone] Allergies No Known Allergies Reason For Referral No Information Medications Medication SIG (Take, Route, Frequency, Duration) Notes Start Date End Date Status Mounjaro 5 MG/0.5ML Solution Pen-injector 5mg Subcutaneous weekly; Duration: 30 days 10/02/2023 Active Labetalol HCl 100 MG Tablet 1 tablet Orally Twice a day Active Social History Section Notes: Pt denied all tobacco use, a lchohol use as well as receational drug use. Problems Problem Type SNOMED Code ICD Code Onset Dates Problem Status W/U Status Risk Notes Problem Morbid obesity (disorder) (325265089) Morbid (severe) obesity due to excess calories (E66.01) Active confirmed Problem Essential hypertension (81823962) Essential (primary) hypertension (I10) Active confirmed Problem Body mass index 40+ - morbidly obese (774373213) BMI 40.0-44.9, adult (Z68.41) Active confirmed Plan Of Treatment No Information Insurance Providers Payer Name Payer Address Payer Phone Subscriber Number Group Number Insured Name Patient Relationship to Insured Coverage Start Date Coverage End Date [employer] [facility] [address] [place] [address] [id number] Rosie Benson Self - patient is the insured Medical (General) History Medical History History ICD Code high blood pressure headache
[2025-05-16 06:34] LABS: MANUAL DIFF FLAG NO
[2025-05-16 06:38] LABS: Hematocrit 41.9 % (37.0-47.0); Hemoglobin 13.1 g/dl (12.0-16.0); Imm Gran Abs Auto 0.07 X10*3/uL (0.00-0.03); Imm Gran Pct Auto 0.7 % (0.0-0.4); Lymphocytes Absolute Auto 2.0 X10*3/uL (1.2-4.9); Mean Corpuscular HGB Conc 31.3 g/dl (31.0-35.0); Mean Corpuscular Hemoglobin 25.0 pg (27.0-33.0); Mean Corpuscular Volume 80.1 fL (80.0-98.0); NRBC Abs Auto 0.000 X10*3/uL (0.0-0.012); NRBC Pct Auto 0.0 /100WBC (0.0-0.2); Platelet Count 294 X10*3/uL (160-400); Red Blood Count 5.23 X10*6/uL (4.20-5.50); White Blood Count 10.0 X10*3/uL (4.8-10.8)
[2025-05-16 06:43] LABS: INTERNATIONAL NORM RATIO 0.9 (0.9-1.1); Prothrombin Time 11.6 SEC (11.2-13.5)
[2025-05-16 06:51] LABS: Alanine Aminotransferase 37 U/L (0-31); Albumin Level 4.5 g/dL (3.5-5.0); Alkaline Phosphatase 87 U/L (39-117); Anion Gap 13 (12-20); Aspartate Amino Transferase 38 U/L (5-31); Blood Urea Nitrogen 15 mg/dL (9-16); Calcium 9.2 mg/dL (8.4-10.2); Carbon Dioxide 24 mmol/L (22-29); Chloride 102 mmol/L (96-108); Creatinine Clr Calc Pharmacy 176.4; Estimated Glomerular Filt Rate > 60; Magnesium 2.2 mg/dL (1.6-2.6); Potassium 3.9 mmol/L (3.3-5.1); Sodium 135 mmol/L (135-145); Total Protein 7.5 g/dL (6.5-8.0)
[2025-05-16 06:54] LABS: IDNOW Serial# 55D5AD1C; Influenza B2 Negative (Negative)
[2025-05-16 07:00] LABS: Troponin-I High Sensitivity < 2.7 ng/L (<3.5-17.0)
--- NOTE | 2025-05-16 07:02 | ED.CHESTPAIN ---
HPI - Chest Pain General Chief Complaint: Chest Pain Stated Complaint: High BP, chest pain Time Seen by Provider: 05/16/25 07:01 Source: patient and old records reviewed Mode of arrival: ambulatory Limitations: no limitations History of Present Illness ED Provider: PENG JACOB narrative: 40-year-old female with past medical history of asthma, anxiety, hypertension, not on blood thinners, here with complaint a few days of blood pressure being 160s over 100s but she is compliant with her labetalol which he has been on for 2 years. She states she checked it after noticing a headache across the forehead area her headache has gotten much worse over the last couple of days. She denies any trauma, and she was at rest when this started. She also feels a left sided upper chest ache but no shortness of breath. She states her headache gets worse with light and she does feel nauseated, she took an aspirin without relief yesterday. She does have a history of migraines but it has been several years she denies any fevers or upper respiratory infections she states she does feel 6-7 hours tingling in the left arm and then noted tingling in the left leg but no weakness on exam her sensation is intact MD complaint: other (Headache chest pain elevated blood pressure) Onset (ago): day(s) (3) Timing of current episode: constant Prior episodes: Yes Onset: during rest Pain location: left chest Pain radiation: none Severity: mild Quality: aching Relieving factors: nothing Exacerbating factors: other Context: other Associated symptoms: nausea (Headache, tingling) Treatment prior to arrival: none Related Data Home Medications ?Medication ?Instructions ?Recorded ?Confirmed albuterol sulfate 90 mcg/actuation 2 puff inhalation Q6H PRN 05/12/23 05/28/23 aerosol inhaler buspirone 5 mg tablet 5 mg PO BID 05/12/23 05/28/23 ferrous sulfate 325 mg (65 mg 325 mg PO DAILY 05/12/23 05/28/23 iron) tablet (FeroSul) labetalol 100 mg tablet 100 mg PO BID 05/12/23 05/28/23 multivitamin 1 tab PO DAILY 05/12/23 05/28/23 Previous Rx's ?Medication ?Instructions ?Recorded meloxicam 15 mg tablet 15 mg PO DAILY PRN pain #5 tabs 05/23/24 methocarbamol 750 mg tablet 1,500 mg (2 x 750 mg) PO Q8H PRN 05/23/24 pain #20 tabs cyclobenzaprine 10 mg tablet 10 mg PO TID PRN muscle spasm #20 05/16/25 tabs Allergies Allergy/AdvReac Type Severity Reaction Status Date / Time No Known Allergies Allergy Verified 05/16/25 05:42 Review of Systems Review of Systems: Constitutional : No Fever, No Chills, No Fatigue ENT/Mouth : No sore throat, No Rhinorrhea Eyes: No Eye Pain, No Swelling, No Redness Cardiovascular : Positive Chest Pain, No SOB, No Dyspnea on Exertion Respiratory : No Cough, No Sputum Gastrointestinal : Positive Nausea, No Vomiting, No Diarrhea, No abdominal Pain Genitourinary : No Dysuria, No Urinary Frequency, No Hematuria, Musculoskeletal : No joint pain, No Myalgias, No Joint Swelling Skin : No Skin Lesions, No rash Neuro : No Weakness, No Numbness, No Dizziness, positive Headache All other systems reviewed and are negative Yes all other systems are reviewed and are negative [facility] Past Medical History Attestation statement: The following information was validated with the patient. Source: old records reviewed Medical History (Updated 05/16/25 @ 10:25 by Jeri Thompson DO) Asthma DJD (degenerative joint disease) Surgical History No history of previous surgery Family History Family History (Updated 05/28/23 @ 08:49 by Joan Aguilar CMA) Mother Diabetes Hypertension Arthritis Father No problems noted. Social History Social History Alcohol intake: current Alcohol intake frequency: holidays/special occasions only Alcohol type: wine Patient Tobacco Use Status: Never used Tobacco Physical Exam Vital Signs: Vital Signs: Last Vital Signs Temp 97 F 05/16/25 10:34 Pulse 79 05/16/25 10:34 Resp 18 05/16/25 10:34 BP 149/78 H 05/16/25 10:34 Pulse Ox 97 05/16/25 10:34 O2 Del Method Room Air 05/16/25 10:34 BMI result Body Mass Index 38.0 Appearance: Alert. Oriented X3. No acute distress. Eyes: Pupils equal, round and reactive to light. ENT: Pharynx normal. Neck: Normal inspection. Neck supple. CVS: Normal heart rate and rhythm. Pulses normal. Respiratory: No respiratory distress. Breath sounds normal. Abdomen: Soft and nontender. Skin: Skin warm and dry. Normal skin color. Normal skin turgor. Extremities: No lower extremity edema. No calf ttp Neuro: Oriented X 3. No motor deficit. No sensory deficit. CN2-12 intact NIH Stroke Scale Internal: Initial- Upon Arrival Level of Consciousness: Alert Level of Consciousness Questions: Answers both questions correctly Level of Consciousness Commands: Performs both tasks correctly Best Gaze: Normal Visual: No visual loss Facial Palsy: Normal Motor Arm (Right): No drift Motor Arm (Left): No drift Motor Leg (Right): No drift Motor Leg (Left): No drift Limb Ataxia: Absent Sensory: Normal Best Language: No aphasia Dysarthia: Normal Extinction and Inattention: No abnormality Score: 0 Medications Administered Discontinued Medications Generic Name Dose Route Start Last Admin Trade Name Freq PRN Reason Stop Dose Admin Diphenhydramine HCl 25 mg 05/16/25 07:12 05/16/25 07:52 Diphenhydramine Hcl 50 Mg/Ml Vial IVPUSH 05/16/25 07:13 25 mg ONCE ONE Administration Ketorolac Tromethamine 15 mg 05/16/25 07:12 05/16/25 07:52 Ketorolac Tromethamine 15 Mg/Ml Vial IVPUSH 05/16/25 07:13 15 mg ONCE ONE Administration Metoclopramide HCl 10 mg 05/16/25 07:12 05/16/25 07:52 Metoclopramide Hcl 10 Mg/2 Ml Vial IVPUSH 05/16/25 07:13 10 mg ONCE ONE Administration Morphine Sulfate 4 mg 05/16/25 08:59 05/16/25 09:33 Morphine Sulfate 4 Mg/Ml Cartridge IVPUSH 05/16/25 09:00 4 mg ONCE ONE Administration Protocol Medical Decision Making Medical Decision Making MDM Narrative: 40-year-old female with past medical history of asthma, anxiety, hypertension, not on blood thinners, here with complaint atypical chest pain she is negative doubt pulmonary embolus, her symptoms are very typical for ACS and her EKG and initial troponin are negative with over 6 hours of pain. She also has headache and tingling in the left extremities but her NIH is 0 and the paresthesias have move this seems more typical of a migraine equivalent. She has no fevers her headache was not sudden onset and has worsened over 2 days I doubt subarachnoid hemorrhage at this time we will treat as a migraine with supportive medications, obtain CT head given hypertension to rule out any mass Differential Diagnosis Differential Diagnoses: The differential diagnosis associated with the presentation includes Atypical chest pain, migraine, elevated blood pressure her NIH score is 0 and the paresthesias have traveled down seems atypical for stroke but suggest more of a migraine picture Admission/Observation Consideration of admission/observation: Escalation of care including admission/observation considered At this time CT head, blood pressure now 140s over 70s, her symptoms otherwise are feeling markedly improved She feels improved and stable for DC We will start on Flexeril She has follow up with her primary care this week Lab Data MDM Lab Attestation statement: I reviewed the patient's lab results. 05/16/25 06:26 05/16/25 06:26 Labs: Lab Results 05/16/25 05/16/25 Range/Units 06:26 06:32 WBC 10.0 (4.8-10.8) X10*3/uL RBC 5.23 (4.20-5.50) X10*6/uL Hgb 13.1 (12.0-16.0) g/dl Hct 41.9 (37.0-47.0) % MCV 80.1 (80.0-98.0) fL MCH 25.0 L (27.0-33.0) pg MCHC 31.3 (31.0-35.0) g/dl RDW 14.4 (11.0-16.0) % Plt Count 294 (160-400) X10*3/uL MPV 8.9 L (9.4-12.3) fL Immature Gran % (Auto) 0.7 H (0.0-0.4) % Neut % (Auto) 71.4 (45-73) % Lymph % (Auto) 19.7 L (20-40) % [place] % (Auto) 5.7 (2-11) % Eos % (Auto) 2.1 (0-4) % Baso % (Auto) 0.4 (0-2) % Lymph # (Auto) 2.0 (1.2-4.9) X10*3/uL [place] # (Auto) 0.6 (0.1-1.2) X10*3/uL Eos # (Auto) 0.2 (0.0-0.4) X10*3/uL Baso # (Auto) 0.0 (0.0-0.2) X10*3/uL Abs Immat Gran (auto) 0.07 H (0.00-0.03) X10*3/uL Absolute Neuts (auto) 7.1 (2.0-8.3) x10*3/uL Absolute Nucleated RBC 0.000 (0.0-0.012) X10*3/uL Nucleated RBC % (auto) 0.0 (0.0-0.2) /100WBC PT 11.6 (11.2-13.5) SEC INR 0.9 (0.9-1.1) Sodium 135 (135-145) mmol/L Potassium 3.9 (3.3-5.1) mmol/L Chloride 102 (96-108) mmol/L Carbon Dioxide 24 (22-29) mmol/L Anion Gap 13 (12-20) BUN 15 (9-16) mg/dL Creatinine 0.56 (0.5-1.4) mg/dL Estim Creat Clear Calc 176.4 Estimated GFR > 60 Fasting Glucose 103 H (60-99) mg/dL Calcium 9.2 (8.4-10.2) mg/dL Magnesium 2.2 (1.6-2.6) mg/dL Total Bilirubin 0.2 (0.0-1.0) mg/dL AST 38 H (5-31) U/L ALT 37 H (0-31) U/L Alkaline Phosphatase 87 (39-117) U/L Troponin I High Sens < 2.7 (<3.5-17.0) ng/L Total Protein 7.5 (6.5-8.0) g/dL Albumin 4.5 (3.5-5.0) g/dL COVID-19 ([facility]O) Negative (Negative) COVID-19 Clin Com See Note Influenza Type A (HERO) Negative (Negative) Influenza Type B (HERO) Negative (Negative) Influenza A & B Note See Note Independent Interpretation I performed an independent interpretation of an: EKG and CT Scan (No intracranial abnormality) Interpretation: Rate: 77 Rhythm: Normal sinus rhythm [employer]: Normal Normal P waves. Normal JOSHUA. Normal QRS complex. ST T wave : Inverted T-waves in V1 but otherwise no ST elevation qTC: 436 prior studies: No acute ischemia The study has been interpreted contemporaneously by me. . Radiology Impression Discussion of test interpretation with radiology: I have reviewed the radiologist's reading. Independent Historian Clinical information obtained from an independent historian. History obtained from or confirmed by: Spouse External Record Review External record reviewed: Outpatient record Discharge Plan Discharge Clinical Impression: Atypical chest pain Migraine Qualifiers: Migraine type: unspecified Status migrainosus presence: without status migrainosus Intractability: not intractable Qualified Code(s): G43.909 - Migraine, unspecified, not intractable, without status migrainosus Patient Disposition: Home, Self-Care Instructions: Chest Pain (ED), Migraine Headache (ED) Additional Instructions: At this time your labs are reassuring including electrolytes, EKG, CT head was normal, your tests for any ischemia to the heart was also normal, your test for COVID and flu are negative Your blood pressure improved with control of your headache At this time would repeat your blood pressure with your doctor in the next 48 hours if it remains high the might need to add on additional blood pressure medication Return for any new symptoms, or worsening neurologic findings, or any other concerns Prescriptions: New cyclobenzaprine 10 mg tablet 10 mg PO TID PRN (Reason: muscle spasm) Qty: 20 0RF No Action meloxicam 15 mg tablet 15 mg PO DAILY PRN (Reason: pain) Qty: 5 0RF methocarbamol 750 mg tablet 1,500 mg PO Q8H PRN (Reason: pain) Qty: 20 0RF labetalol 100 mg tablet 100 mg PO BID ferrous sulfate [FeroSul] 325 mg (65 mg iron) tablet 325 mg PO DAILY multivitamin Tablet 1 tab PO DAILY buspirone 5 mg tablet 5 mg PO BID albuterol sulfate 90 mcg/actuation HFA aerosol inhaler 2 puff inhalation Q6H PRN Stand Alone Forms: Work/School Release Discharge Date/Time: 05/16/25 10:39 Print Language: Azeri
[2025-05-16 07:19] LABS: COVID-19 Test Negative (Negative); IDNOW Serial# 08D9AD1C
[2025-05-16 07:51] VITALS: BP 164/96; PULSE 79; RESP 18; TEMP 36.4; O2SAT 99
[2025-05-16 09:35] VITALS: BP 163/94; PULSE 75; RESP 16; O2SAT 98
[2025-05-16 10:34] VITALS: BP 149/78; PULSE 79; RESP 18; TEMP 36.1; O2SAT 97
== END 2025-05-16 10:39 | disposition home or self-care (01) ==
PROVIDERS: Emergency Provider Emergency Medicine
DX: G43.909 Migraine, unspecified, not intractable, without status migrainosus (principal); R07.89 Other chest pain; I10 Essential (primary) hypertension; Z79.899 Other long term (current) drug therapy
CPT/HCPCS: 36415; 70450; 80053; 83735; 84484; 85025; 85610; 87502; 87635; 93005; 96374; 96375; 99284; J1200; J1885; J2270; J2765

== ENCOUNTER → 2025-05-16 05:28 | Outpatient (BNV) | payer BC, SELFPAY | PROVIDERS: Emergency Provider Emergency Medicine; Visit Provider Internal Medicine Cardiovascular Disease | DX: R07.9 Chest pain, unspecified (principal) | CPT/HCPCS: 93010 ==

== ENCOUNTER → 2025-05-16 07:12 | Outpatient (BNV) | payer BC, SELFPAY | PROVIDERS: Emergency Provider Emergency Medicine; Visit Provider Radiology Diagnostic Radiology | DX: R51.9 Headache, unspecified (principal) | CPT/HCPCS: 70450 ==

== ENCOUNTER 2025-06-16 10:55 | Outpatient (AMB) | payer BC, SELFPAY ==
--- NOTE | 2025-06-16 11:02 | MHC.OFFVIS ---
Vital Signs 06/16/25 11:08 Height 5 ft 8 in Weight 220 lb BMI 33.4 Intake Visit Reasons: back pain Intake Note: Patient is a 76 year old male in office today as a new patient for back pain. middle to lower from a herniated disk last visit had a cordisone shot and it helped tly ibuprophen not really helping Heat dose help a little Allergies No Known Allergies Allergy (Verified 05/16/25 05:42) HPI Comments Details: History of Present Illness The patient is a 40 year old female presenting with new mid-back pain. The pain began a couple of weeks ago and is described as discomfort located centrally in her mid-back, which she has not experienced before. She has been treating it with heat, Biofreeze, and ibuprofen. The patient reports a history of a fall in August, after which she was treated with physical therapy, prednisone, gabapentin, and ibuprofen, leading to resolution of her symptoms at that time. She completed her physical therapy sessions for the year around September. Past imaging includes an x-ray which showed a stable mild anterior wedge compression deformity of T10 and T11, an area which corresponds to her current pain location. The patient reports significant claustrophobia, making MRIs a non-preferred diagnostic option for her. Pain Description - Onset: The patient reports the new mid-back pain started a couple of weeks ago. - Location: The pain is located centrally in the mid-back. - Radiation: She reports the pain sometimes radiates down her ribs. - Quality: The patient describes the sensation as discomfort. - Alleviating Factors: She has tried heat, Biofreeze, and ibuprofen for relief. - Exacerbating Factors: Rotation causes some pain, and leaning backward causes discomfort. - Associated Symptoms: The patient notes she is no longer able to touch her toes, indicating decreased flexibility. Procedure: Left L4 TFESI 04/09/2024 75% reduction of her pain Results - Imaging: A prior X-ray showed a stable mild anterior wedge compression deformity of T10 and T11. [facility] Medical History (Updated 06/16/25 @ 12:16 by IDA Messer) Asthma DJD (degenerative joint disease) Surgical History No history of previous surgery Family History (Updated 05/28/23 @ 08:49 by Joan Aguilar CMA) Mother Diabetes Hypertension Arthritis Father No problems noted. Social History Alcohol intake: current Alcohol intake frequency: holidays/special occasions only Alcohol type: wine Patient Tobacco Use Status: Never used Tobacco Review of Systems Narrative Review of Systems - Musculoskeletal: Reports new central mid-back pain with radiation down the ribs and decreased flexibility, unable to touch toes. - Respiratory: Denies pain with deep breaths. - Psychiatric: Reports claustrophobia, particularly related to MRI scans. Physical Exam Exam Exam: Physical Exam - Back: Examination revealed central tenderness in the mid-thoracic spine. - Spinal extension causes discomfort. - Forward flexion is limited but does not cause pain. - Rotation elicits pain. - Shoulders: Protraction causes discomfort. - Retraction, elevation, and depression are unremarkable. - Respiratory: No pain with deep inspiration. Vital Signs: BMI result Body Mass Index 33.4 Results Reviewed Results Reviewed: MRI lumbar spine 10/06/2023 impression: At L5-S1 there is mild to moderate left neuroforaminal narrowing. Central disc protrusion is seen. L4-5 there was left paracentral disc extrusion. Canal stenosis and narrowing of the left lateral recesses seen. At L3-4 there is disc bulge with bilateral facet hypertrophy. X-ray sacroiliac joint 04/17/2023 impression: Mild degenerative changes in the left SI joint. X-ray thoracic spine 10/08/2023 impression: Mild degenerative changes which are greater in the lower spine. Assessment & Plan Assessment & Plan (1) Thoracic back pain: Code(s): M54.6 - Pain in thoracic spine Category: Medical Qualifiers: Back pain laterality: midline Chronicity: acute Qualified Code(s): M54.6 - Pain in thoracic spine Plan Pain Management - Analgesia: The patient is currently using ibuprofen, heat, and Biofreeze for her mid-back pain. - Activities of Daily Living: The patient reports she is no longer able to touch her toes. - Affect: The patient expresses concern about the new pain and has significant claustrophobia, stating that she and MRIs are not friends. Plan Patient was informed and verbally consented to the use of an ambient scribe for clinic note documentation during this visit. 1. Thoracic Spine Pain The patient's new-onset mid-back pain, which has been present for a couple of weeks, is likely musculoskeletal. The location corresponds to a known stable mild anterior wedge compression deformity of T10 and T11 on a prior x-ray. The plan is to start with conservative management. A home exercise program focusing on strengthening the mid-back (e.g., opposite arm/opposite leg exercises), improving posture, and shoulder exercises was provided. She may continue using ibuprofen and can alternate with Tylenol for pain relief. If the pain persists into July, a referral for physical therapy will be ordered, as her benefits are expected to renew. An MRI will be considered if her symptoms are refractory to physical therapy, though her claustrophobia is a significant factor. Discussion Notes I discussed with the patient that her new mid-back pain, which has been present for a couple of weeks, is likely musculoskeletal and that most cases resolve with time. I explained that the pain location corresponds to a known benign wedge compression deformity at T10-11 on a prior X-ray. We reviewed treatment options including more time, conservative measures like home exercises, or more aggressive approaches like formal PT and a potential MRI. The patient expressed a strong aversion to an MRI due to claustrophobia. We agreed to a plan of initiating a home exercise program, continuing [id number] analgesics like ibuprofen and Tylenol, and using heat or cold compresses. I advised her that if the pain persists into the new , she should call the office, and I will place a referral for formal physical therapy once her insurance benefits renew. I reassured her that concern is not warranted at this time unless the pain fails to improve after a month or two, at which point further investigation might be needed. Patient Instructions - You can continue to take ibuprofen for your pain and may alternate it with Tylenol. - Using cold or hot packs on your back may help with the discomfort. - Begin the home exercises we discussed, including the one where you are on all fours and lift your opposite arm and leg, as this is great for the mid-back. - Try exercises to improve your posture, such as using bands to pull your shoulders back and doing shoulder shrugs. - Most pain of this type gets better on its own within a month or two, so there is no need to be overly concerned right now. - If your pain is still bothering you in the new year (after July 07), please call our office, and we will order physical therapy for you. Coding Level of Care Code Tele Est Pt Level 3 (34218) Diagnoses Acute midline thoracic back pain M54.6 Back pain laterality: midline Chronicity: acute
[2025-06-16 11:08] VITALS: BMI 33.4
== END 2025-06-16 11:49 | disposition home or self-care (01) ==
LOC: HO.HPHYS 10:55
PROVIDERS: PCP Internal Medicine; Visit Provider Physician Assistant
DX: M54.6 Pain in thoracic spine (principal)
CPT/HCPCS: 99213